=== PATIENT | male | born 1980 | race Caucasian/White ===

== ENCOUNTER 2017-10-24 08:31 | Emergency (ER) | payer OTHER ==
[~2017-10-24] VITALS: Ht 177.8 cm; Wt 68.2 kg
[2017-10-24 10:00] LABS: MEAN CORPUSCULAR HEMOGLOBIN 31.1 pg (27.0-33.0); MEAN CORPUSCULAR HGB CONC 34.4 g/dl (32.0-36.5); MEAN CORPUSCULAR VOLUME 90.4 fl (80.0-96.0); PLATELET COUNT, AUTOMATED 365 10^3/uL (150-450); RED CELL DISTRIBUTION WIDTH 12.7 % (11.5-14.5); WHITE BLOOD COUNT 12.6 10^3/uL (4.0-10.0)
[2017-10-24] MEDS ORDERED: NS 1,000 ML IV ONE (10:00)
[2017-10-24 10:23] LABS: ANION GAP 9 MEQ/L (8-16); BLOOD UREA NITROGEN 16 MG/DL (7-18); CALCIUM LEVEL 9.3 MG/DL (8.5-10.1); CARBON DIOXIDE LEVEL 29 MEQ/L (21-32); CHLORIDE LEVEL 99 MEQ/L (98-107); CREATININE FOR GFR 0.81 MG/DL (0.70-1.30); GLOMERULAR FILTRATION RATE > 60.0 (>60); GLUCOSE, FASTING 97 MG/DL (70-105); POTASSIUM SERUM 3.1 MEQ/L (3.5-5.1); SODIUM LEVEL 137 MEQ/L (136-145)
[2017-10-24] MEDS ORDERED: POTASSIUM CHLORIDE 10 MEQ SR TABLET PO ONE (11:00)
[2017-10-24 11:30] VITALS: BP 154/78
--- NOTE | 2017-10-25 08:37 | ECGEPIP ---
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
== END 2017-10-24 11:53 | disposition home or self-care (01) ==
LOC: M ED 08:31
DX: K21.0 Gastro-esophageal reflux disease with esophagitis (principal); I45.2 Bifascicular block; F17.200 Nicotine dependence, unspecified, uncomplicated; F12.10 Cannabis abuse, uncomplicated; Z82.49 Family history of ischemic heart disease and other diseases of the circulatory system; Z80.0 Family history of malignant neoplasm of digestive organs; Z88.0 Allergy status to penicillin

== ENCOUNTER → 2017-11-30 | Outpatient (REF) | payer OTHER ==
[2017-11-30 14:30] LABS: HEMATOCRIT 42.2 % (42.0-52.0); HEMOGLOBIN 13.8 g/dl (14.0-18.0); MEAN CORPUSCULAR HEMOGLOBIN 30.8 pg (27.0-33.0); MEAN CORPUSCULAR HGB CONC 32.7 g/dl (32.0-36.5); MEAN CORPUSCULAR VOLUME 94.2 fl (80.0-96.0); PLATELET COUNT, AUTOMATED 371 10^3/uL (150-450); RED BLOOD COUNT 4.48 10^6/uL (4.30-6.10); RED CELL DISTRIBUTION WIDTH 12.8 % (11.5-14.5); WHITE BLOOD COUNT 13.2 10^3/uL (4.0-10.0)
[2017-11-30 14:55] LABS: ALBUMIN 3.7 GM/DL (3.2-5.2); ALBUMIN/GLOBULIN RATIO 1.12 (1.00-1.93); ALKALINE PHOSPHATASE 64 U/L (45-117); ALT/SGPT 18 U/L (12-78); ANION GAP 8 MEQ/L (8-16); AST/SGOT 13 U/L (7-37); BILIRUBIN,TOTAL 0.3 MG/DL (0.2-1.0); BLOOD UREA NITROGEN 10 MG/DL (7-18); CALCIUM LEVEL 8.9 MG/DL (8.5-10.1); CARBON DIOXIDE LEVEL 28 MEQ/L (21-32); CHLORIDE LEVEL 104 MEQ/L (98-107); CHOLESTEROL LEVEL 193 MG/DL (<200); CHOLESTEROL RISK RATIO 4.288 (<5); CREATININE FOR GFR 0.84 MG/DL (0.70-1.30); GLOMERULAR FILTRATION RATE > 60.0 (>60); GLUCOSE, FASTING 87 MG/DL (70-100); HDL CHOLESTEROL 45 MG/DL (>40); LDL CHOLESTEROL 120.2 MG/DL (<100); NON-HDL-C 148 MG/DL; POTASSIUM SERUM 4.4 MEQ/L (3.5-5.1); SODIUM LEVEL 140 MEQ/L (136-145); TRIGLYCERIDES LEVEL 139 MG/DL (<150)
[2017-11-30 15:00] LABS: TESTOSTERONE 661 NG/DL (241-827)
== END ==
LOC: M LABDRAW1 10:19
DX: R10.9 Unspecified abdominal pain (principal)
CPT/HCPCS: 84403

== ENCOUNTER 2020-01-10 14:42 | Emergency (ER) | payer OTHER ==
[~2020-01-10] VITALS: Ht 177.8 cm; Wt 61.6 kg
[2020-01-10] MEDS ORDERED: [UNRECOGNIZED DRUG - OTHER] (14:50)
[2020-01-10] MEDS ORDERED: ONDANSETRON 4 MG ORAL DISINTEGRATING TAB (Q0162 PER 1MG) PO ONE (16:15)
[2020-01-10] MEDS ORDERED: PERCOCET 5MG/325MG TAB PO ONE (16:15)
--- NOTE | 2020-01-10 17:01 | REPVR ---
PROCEDURE INFORMATION: Exam: CT Lumbar Spine Without Contrast Exam date and time: 01/10/2020 4:17 PM Age: 39 years old Clinical indication: Back pain. TECHNIQUE: Imaging protocol: Computed tomography images of the lumbar spine without contrast. Radiation optimization: All CT scans at this facility use at least one of these dose optimization techniques: automated exposure control; mA and/or kV adjustment per patient size (includes targeted exams where dose is matched to clinical indication); or iterative reconstruction. COMPARISON: No relevant prior studies available. FINDINGS: Vertebrae: Lumbar lordosis is preserved. Vertebral body heights are maintained. No acute lumbar spine fracture. No measurable spondylolisthesis. Discs/Spinal canal/Neural foramina: Degenerative disc height loss with endplate sclerosis at L5-S1. Remaining disc space heights are preserved. Mild bilateral foraminal narrowing at L5-S1. Soft tissues: Unremarkable. IMPRESSION: 1. No acute findings in the lumbar spine. 2. Degenerative changes at L5-S1, as above. Electronically signed by: Jose Alberto Cruz On 01/10/2020 17:01:44 PM
--- NOTE | 2020-01-10 17:02 | REP ---
Duplex extremity venous ultrasound: Right lower extremity. History: Swelling. Rule out DVT. Findings: The deep veins are anechoic and fully compressible from the groin to the popliteal fossa in the right lower extremity. Color flow imaging is homogeneous. Spectral Doppler interrogation demonstrates intact respiratory variation in flow and normal manual augmentation of flow. There is no evidence of deep vein thrombosis. Impression: Negative right lower extremity duplex venous ultrasound. No evidence of deep vein thrombosis. Electronically Signed by Rafael Benítez MD 01/10/2020 04:54 P
[2020-01-10 17:14] LABS: INR 1.17; PROTHROMBIN TIME 14.6 SECONDS (11.8-14.0)
[2020-01-10] MEDS ORDERED: PERC5TAB12 PO (17:51)
--- NOTE | 2020-01-10 18:26 | REP ---
CT chest without contrast: History: Lung mass. Comparison is made with today's chest x-ray. Noncontrast chest CT findings: CT study confirms the presence of a large mass in the left lung apex. This measures 7.1 cm in greatest transverse dimension by 7.2 cm in greatest craniocaudal by 6.3 cm anterior to posterior. The lesion abuts the posterior aspect of the pleural space and the posterior ribs number 2 through 5. There is a tiny cortical defect or disruption of the posterior aspect of the left 3rd rib at the level of the mass. This may imply early chest wall invasion and rib destruction. No other skeletal changes are seen. There is bulky left hilar and mediastinal lymphadenopathy. Confluent adenopathy in the left AP window region measures 7.8 x 6.2 by 6.2 cm. There is hazy ground-glass opacity throughout much of the left lower lobe and to some degree in the right lower lobe. There are a few focally dilated bronchi or tiny cavitary nodules in the left upper lobe. There are emphysematous changes in the right apex. There is an intrarenal calculus in the upper pole of the left kidney 3 mm in diameter. No adrenal lesion is apparent. The visualized upper abdominal structures are otherwise unremarkable. Impression: Large left upper lobe apical lung mass which is pleural-based with equivocal erosive changes in the posterior left 3rd rib. There is bulky hilar and mediastinal lymphadenopathy on the left. Ground-glass opacity changes are seen in the lower lobes bilaterally. Multifocal dilated peripheral bronchi versus small cavitary nodules left upper lobe. Electronically Signed by Rafael Benítez MD 01/10/2020 08:13 P
[2020-01-10 18:40] VITALS: BP 151/80
--- NOTE | 2020-01-11 14:40 | ED PDOC ---
Post-Departure Follow-Up ct chest faxed to dr valladares for fu Alyssa Anand MD Jan 11, 2020 14:40
[2020-01-13] MEDS ORDERED: PERC5TAB12 PO (09:36)
== END 2020-01-10 18:42 | disposition home or self-care (01) ==
LOC: M ED 14:42
DX: R91.8 Other nonspecific abnormal finding of lung field (principal); M51.37 Other intervertebral disc degeneration, lumbosacral region; M48.07 Spinal stenosis, lumbosacral region; K21.9 Gastro-esophageal reflux disease without esophagitis; F17.210 Nicotine dependence, cigarettes, uncomplicated; Z88.0 Allergy status to penicillin; Z79.899 Other long term (current) drug therapy
CPT/HCPCS: 71250; 72131; 85610; 93971; 99283; Q0162

== ENCOUNTER → 2020-01-10 | Outpatient (CLI) | payer OTHER ==
[~2020-01-10] MED LIST: PERC5TAB12 PO; [UNRECOGNIZED DRUG - OTHER]
--- NOTE | 2020-01-10 10:04 | REP ---
Chest x-ray: Three views. History: Pain. Comparison chest x-ray: April 16 2009. Findings: There is a large lung mass in the left upper lobe measuring approximately 6 cm in greatest diameter. There is a thin enlargement left hilus and large with a left periaortic contour consistent with metastatic adenopathy. The findings are consistent with locally advanced bronchogenic malignancy. Chest CT study is recommended. The right lung is clear. Pleural angles are sharp. Heart is not enlarged. Impression: 6 cm mass in the left lung apex with left hilar and mediastinal lymphadenopathy. CT study of the chest preferably with IV contrast for further evaluation. Findings most consistent with bronchogenic malignancy. Electronically Signed by Rafael Benítez MD 01/10/2020 09:56 A
--- NOTE | 2020-01-10 10:05 | REP ---
Right shoulder series: Four views. History: Pain. Findings: Four views of the left shoulder demonstrate normal alignment of the glenohumeral and acromioclavicular joints. Periarticular soft tissues are unremarkable. There is a large mass in the apex of the left lung and there is left-sided mediastinal lymphadenopathy is seen on today's chest x-ray. Impression: Large left upper lobe/apical pleural-based lung mass. No rib destruction visible. Mediastinal adenopathy. No bony abnormality. Electronically Signed by Rafael Benítez MD 01/10/2020 09:57 A
[2020-01-10 13:11] LABS: BASO # 0.1 10^3/uL (0.0-0.2); BASO % 0.6 % (0.0-1.0); EOS # 0.2 10^3/uL (0.0-0.5); EOS % 1.4 % (0.0-3.0); HEMATOCRIT 26.6 % (42.0-52.0); HEMOGLOBIN 8.3 g/dl (13.5-17.5); LYMPH % 20.8 % (24.0-44.0); MEAN CORPUSCULAR HEMOGLOBIN 26.3 pg (27.0-33.0); MEAN CORPUSCULAR HGB CONC 31.2 g/dl (32.0-36.5); MEAN CORPUSCULAR VOLUME 84.4 fl (80.0-96.0); MONO # 0.8 10^3/uL (0.0-0.8); MONO % 5.8 % (0.0-5.0); NEUTROPHILS # 10.2 10^3/uL (1.5-8.5); NEUTROPHILS % 71.1 % (36.0-66.0); PLATELET COUNT, AUTOMATED 718 10^3/uL (150-450); RED BLOOD COUNT 3.15 10^6/uL (4.30-6.10); WHITE BLOOD COUNT 14.3 10^3/uL (4.0-10.0)
[2020-01-10 14:02] LABS: ALBUMIN 2.5 GM/DL (3.2-5.2); ALT/SGPT 15 U/L (12-78); AMYLASE 36 U/L (25-115); BILIRUBIN,TOTAL 0.8 MG/DL (0.2-1.0); BLOOD UREA NITROGEN 10 MG/DL (7-18); CALCIUM LEVEL 9.1 MG/DL (8.5-10.1); CARBON DIOXIDE LEVEL 28 MEQ/L (21-32); CHLORIDE LEVEL 101 MEQ/L (98-107); CREATININE FOR GFR 0.77 MG/DL (0.70-1.30); GLOMERULAR FILTRATION RATE > 60.0 (>60); GLUCOSE, FASTING 94 MG/DL (70-100); LIPASE 110 U/L (73-393); POTASSIUM SERUM 3.4 MEQ/L (3.5-5.1); SODIUM LEVEL 134 MEQ/L (136-145); TOTAL PROTEIN 6.9 GM/DL (6.4-8.2)
[2020-01-10 14:09] LABS: HEMOGLOBIN A1c 5.7 %
== END ==
LOC: M WUC 09:10
PROVIDERS: ATTEND Nurse Practitioner Family
DX: M25.512 Pain in left shoulder (principal); R63.4 Abnormal weight loss

== ENCOUNTER → 2020-01-14 | Outpatient (REF) | payer OTHER ==
[~2020-01-14] MED LIST changes: +CYCL10TA PO
[2020-01-14 13:35] LABS: INR 1.2; PROTHROMBIN TIME 14.9 SECONDS (11.8-14.0)
[2020-01-14 13:37] LABS: PARTIAL THROMBOPLASTIN TIME 38.3 SECONDS (25.0-38.4)
[2020-01-14 13:38] LABS: PLATELET COUNT, AUTOMATED 730 10^3/uL (150-450)
== END ==
LOC: M LAB REF 12:50
PROVIDERS: ATTEND Internal Medicine Pulmonary Disease
DX: R91.8 Other nonspecific abnormal finding of lung field (principal)

== ENCOUNTER → 2020-01-18 | Outpatient (CLI) | payer OTHER ==
[~2020-01-18] MED LIST changes: +LIDOCAINE 1% MDV 20ML VIAL As Ordered ONE
--- NOTE | 2020-01-18 14:38 | REP ---
Chest x-ray: Single view. History: Status post left lung biopsy. Comparison chest x-ray: January 10, 2020. Findings: The left hemidiaphragm remains somewhat elevated. There is a large mass at the apex of the left lung which was the biopsy target. There is bulky left mediastinal lymphadenopathy. These are unchanged. There is no evidence of pneumothorax or other complication. Electronically Signed by Rafael Benítez MD 01/18/2020 02:30 P
[2020-01-18 15:10] VITALS: BP 132/88
--- NOTE | 2020-01-18 16:08 | REP ---
CT-guided left upper lobe lung biopsy The procedure is performed by MARIA ALEJANDRA Galdamez, under the direct supervision of Dr. Benítez. The risks and benefits of the procedure were explained to the patient and informed consent was obtained both orally and written. Directly prior to the start of the procedure, a formal timeout was done in the exam room. The left upper lobe lung mass was localized using CT guidance. Skin was prepped and draped in the usual sterile fashion. 3 ml of 1% lidocaine 10 mg/ml was used as a local anesthetic. Using CT guidance a 19/20 gauge coaxial needle biopsy system was inserted and advanced into the mass. 6 core biopsy samples were obtained and sent to the lab. CT images obtained directly after the biopsy show no evidence of pneumothorax. After the appropriate amount of monitored convalescence the patient was discharged from the department. Reviewed by MARIA ALEJANDRA Marcos 01/18/2020 03:02 P Electronically Signed by Rafael Benítez MD 01/18/2020 03:59 P
== END ==
LOC: M IRPRO 11:15
PROVIDERS: ATTEND Internal Medicine Pulmonary Disease
DX: C34.12 Malignant neoplasm of upper lobe, left bronchus or lung (principal); F17.218 Nicotine dependence, cigarettes, with other nicotine-induced disorders; Z80.1 Family history of malignant neoplasm of trachea, bronchus and lung; R91.8 Other nonspecific abnormal finding of lung field

== ENCOUNTER → 2020-01-28 | Outpatient (CLI) | payer OTHER ==
[~2020-01-28] MED LIST changes: +ACET-683 PO; -LIDOCAINE 1% MDV 20ML VIAL As Ordered ONE
--- NOTE | 2020-01-28 08:43 | PFTRPT ---
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 Pt was given four puffs of albuterol for postbronchodilator. Review Status: Not Reviewed Pre-Bronch Post-Bronch Pred Actual %Pred Actual %Chng SPIROMETRY FVC (L) 4.93 2.99 60 3.74 24 FEV1 (L) 3.92 1.91 48 2.74 43 FEV1/FVC (%) 79 64 80 73 15 FEF 25% (L/sec) 6.90 2.29 33 4.45 94 FEF 50% (L/sec) 4.52 1.64 36 3.33 103 FEF 75% (L/sec) 1.63 0.63 38 2.00 216 FEF 25-75% (L/sec) 3.71 1.33 35 3.12 134 FEF Max (L/sec) 9.69 2.71 28 4.50 65 FIVC (L) 2.91 3.69 26 FIF 50% (L/sec) 5.20 1.93 37 3.35 73 FIF Max (L/sec) 2.12 3.39 59 MVV (L/min) 157 57 36 Expiratory Time (sec) 7.80 7.62 -2 Back Extrap Vol (L) 0.06 0.11 84 Time To FEFmax (sec) 0.126 0.145 15 LUNG VOLUMES SVC (L) 4.78 3.58 74 IC (L) 3.29 2.65 80 ERV (L) 1.49 0.93 62 TGV (L) 3.24 3.90 120 RV (Pleth) (L) 1.75 2.97 169 TLC (Pleth) (L) 6.53 6.55 100 RV/TLC (Pleth) (%) 27 45 167 DIFFUSION DLCOunc (ml/min/mmHg) 31.80 15.43 48 DLCOcor (ml/min/mmHg) 31.80 17.75 55 DL/VA (ml/min/mmHg/L) 4.87 2.84 58 VA (L) 6.53 6.26 95 BHT (sec) 10.39 IVC (L) 3.52 TLC (SB) (L) 6.41 AIRWAYS RESISTANCE Raw (cmH2O/L/s) 1.45 2.09 143 Gaw (L/s/cmH2O) 1.03 0.49 48 sRaw (cmH2O*s) 4.76 7.85 164 sGaw (1/cmH2O*s) 0.20 0.13 65 BLOOD GASES Hgb (gm/dL) 10.7
== END ==
LOC: M CARPUL 07:34
PROVIDERS: ATTEND Internal Medicine Pulmonary Disease
DX: C34.82 Malignant neoplasm of overlapping sites of left bronchus and lung (principal)

== ENCOUNTER → 2020-01-28 | Outpatient (CLI) | payer OTHER ==
[~2020-01-28] MED LIST changes: +ISOVUE-370 76% 100ML VIAL (Q9967) As Ordered ONE
--- NOTE | 2020-01-28 09:04 | REP ---
Clinical: Non-small cell lung cancer. Staging. Technique: Axial contrast enhanced images from the thoracic inlet to the upper abdomen with coronal and sagittal re-formations. Comparison: 01/10/2020. Findings: 7.8 x 5.5 x 7.0 cm posterior left apical mass along with conglomerate adenopathy/mass arising from the left perihilar/suprahilar lung zone with extension into the mediastinum and near complete extrinsic compression of the left main pulmonary artery measures greater than 7.6 x 9.3 x 10.7 cm. Further left mediastinal and hilar adenopathy measuring up to 3.9 cm diameter. Underlying moderate emphysematous disease with minimal scattered bilateral scarring. Right hemithorax appears relatively clear although a small irregular area of opacity at the deep medial right posterior sulcus (images 101 - 109) is identified and small area of right upper lobe scarring (images 20 - 28) noted. No significant pleural effusion. No pneumothorax. Thoracic aorta appears normal. No pericardial effusion. No cardiomegaly. The osseous structures appear intact. Impression: 1. Large left sided mass lesions and adenopathy as described above. 2. Underlying chronic emphysematous changes and subtle right-sided changes as noted above are nonspecific. Electronically Signed by Maurilio Coleman MD 01/28/2020 08:55 A
== END ==
LOC: M RAD 07:33
PROVIDERS: ATTEND Internal Medicine Hematology & Oncology
DX: C34.92 Malignant neoplasm of unspecified part of left bronchus or lung (principal)
CPT/HCPCS: 71260; Q9967

== ENCOUNTER → 2020-01-30 | Outpatient (CLI) | payer OTHER ==
[~2020-01-30] MED LIST changes: -ISOVUE-370 76% 100ML VIAL (Q9967) As Ordered ONE; +LIDOCAINE 1% MDV 20ML VIAL As Ordered ONE
[2020-01-30 08:09] VITALS: BP 129/79
== END ==
LOC: M IRPRO 07:58
PROVIDERS: ATTEND Internal Medicine Hematology & Oncology
DX: K13.29 Other disturbances of oral epithelium, including tongue (principal); R43.9 Unspecified disturbances of smell and taste; R05 Cough; R07.0 Pain in throat; R50.9 Fever, unspecified; C34.90 Malignant neoplasm of unspecified part of unspecified bronchus or lung; Z53.09 Procedure and treatment not carried out because of other contraindication

== ENCOUNTER → 2020-02-04 | Outpatient (CLI) | payer OTHER ==
[~2020-02-04] MED LIST changes: -LIDOCAINE 1% MDV 20ML VIAL As Ordered ONE; +OXYC1TAB23 PO
--- NOTE | 2020-02-04 19:37 | REP ---
PET/CT: History: Staging lung cancer. Comparisons: Comparison CT study of the chest is from January 28, 2020. TECHNIQUE: 47 minutes following the intravenous injection of a 8.23 mCi dose of F-18 FDG, three-dimensional PET scintigraphy is acquired from the skull base to the proximal thighs. Triplanar noncontrast CT scanning is acquired through the same anatomic range for attenuation correction, and image registration with scan parameters optimized to minimize radiation exposure to the patient. PET scintigraphy and CT datasets were fused and displayed on a workstation with multiplanar and projection display capability. PET/CT Findings: The known large left lung apical soft tissue mass is markedly hypermetabolic. Maximum standard uptake value within this mass is 24.35. There is evidence of posterior chest wall involvement and erosive changes are seen in the left posterior 4th rib. The mediastinal mass seen is also hypermetabolic. Maximum standard uptake value within this is 20.16. Hypermetabolic left hilar adenopathy is seen with maximum standard uptake value 17.74. No other pulmonary parenchymal hypermetabolic uptake is appreciated. In the abdomen and pelvis, there is normal FDG distribution. No abnormal adrenal uptake is seen. No abnormal hypermetabolic uptake is seen in the abdomen or pelvis. Impression: Markedly hypermetabolic uptake is seen in the large mass in the left apex and in the bulky mediastinal and left hilar adenopathy. There is left apical posterior chest wall involvement with erosive changes in the 4th posterior rib on the left. Electronically Signed by Rafael Benítez MD 02/04/2020 07:39 P
== END ==
LOC: M PLARAD 09:17
PROVIDERS: ATTEND Internal Medicine Pulmonary Disease
DX: C34.82 Malignant neoplasm of overlapping sites of left bronchus and lung (principal)
CPT/HCPCS: 78815; A9552

== ENCOUNTER → 2020-02-05 | Outpatient (CLI) | payer OTHER ==
[~2020-02-05] MED LIST changes: +PROHANCE 279.3MG/ML 15ML VIAL (A9576) As Ordered ONE
--- NOTE | 2020-02-05 17:48 | REP ---
MRI brain without and with IV gadolinium: History: Lung carcinoma. No comparison brain imaging. Technique: Axial and sagittal imaging planes are utilized for T1 and T2-weighted scans. Sequences include spin-echo, fast spin echo, FLAIR, and diffusion weighted sequences. Gadolinium enhancement dose is 11 mL of intravenous ProHance. MRI findings: No bony calvarial lesion is appreciated. Craniocervical junction and upper cervical cord are normal in appearance. No intraorbital abnormality is seen. There is no MR evidence of significant paranasal sinus disease. There is mild motion artifact on the T2-weighted sequences. Diffusion weighted scan show no evidence to suggest acute ischemia or other cause of restricted diffusion. There is no evidence of intracranial mass lesion. No extra-axial fluid collection is seen. Postcontrast imaging shows enhancement in normal vasculature. No abnormal contrast enhancement is appreciated. Impression: There is no evidence of intracranial metastasis or other acute intracranial abnormality. Electronically Signed by Rafael Benítez MD 02/06/2020 08:48 A
== END ==
LOC: M RAD 15:20
PROVIDERS: ATTEND Internal Medicine Hematology & Oncology
DX: C34.90 Malignant neoplasm of unspecified part of unspecified bronchus or lung (principal)
CPT/HCPCS: 70553; A9576

== ENCOUNTER → 2020-02-06 | Outpatient (CLI) | payer OTHER ==
[~2020-02-06] MED LIST changes: +LIDOCAINE 1% MDV 20ML VIAL As Ordered ONE; +MORP30TASA PO; +OXYC10TA12 PO; +OXYC1CAP PO; -PROHANCE 279.3MG/ML 15ML VIAL (A9576) As Ordered ONE
--- NOTE | 2020-02-06 10:05 | REP ---
CHEST, SINGLE VIEW: Single view of the chest is performed status post left lung biopsy. There is no pneumothorax. Left upper lobe mass is again seen. Left hilar mass is again seen. Right lung is clear. Heart is normal in size. IMPRESSION: No pneumothorax status post left lung biopsy. Electronically Signed by Chuck Sandoval MD 02/06/2020 10:33 A
[2020-02-06 11:30] VITALS: BP 120/80
--- NOTE | 2020-02-06 11:58 | REP ---
CHEST, SINGLE VIEW: Single view of the chest is performed status post left lung biopsy. There is no pneumothorax. Left apical and hilar masses are unchanged. Right lung remains clear. IMPRESSION: No pneumothorax status post left lung biopsy. Electronically Signed by Chuck Sandoval MD 02/06/2020 12:14 P
--- NOTE | 2020-02-06 13:39 | REP ---
CT-guided left upper lobe lung biopsy The procedure is performed by MARIA ALEJANDRA Galdamez, under the direct supervision of Dr. Sandoval. The risks and benefits of the procedure were explained to the patient and informed consent was obtained both orally and written. Directly prior to the start of the procedure, a formal timeout was done in the exam room. The left upper lobe lung mass was localized using CT guidance. Skin was prepped and draped in the usual sterile fashion. 4 ml of 1% lidocaine 10 mg/ml was used as a local anesthetic. Using CT guidance a 19/20 gauge coaxial needle biopsy system was inserted and advanced into the nodule. 6 core biopsy samples were obtained and sent to the lab. CT images obtained directly after the biopsy show no evidence of pneumothorax. After the appropriate amount of monitored convalescence the patient was discharged from the department. Reviewed by MARIA ALEJANDRA Marcos 02/06/2020 12:17 P Electronically Signed by Chuck Sandoval MD 02/06/2020 01:31 P
== END ==
LOC: M IRPRO 08:20
PROVIDERS: ATTEND Internal Medicine Hematology & Oncology
DX: C34.92 Malignant neoplasm of unspecified part of left bronchus or lung (principal); Z88.0 Allergy status to penicillin

== ENCOUNTER → 2020-02-15 | Outpatient (CLI) | payer OTHER ==
[~2020-02-15] MED LIST changes: +CYCL-707 PO; -CYCL10TA PO; +MIDAZOLAM INJ 2 MG/2 ML VIAL (J2250) As Ordered ONE; +VANCOMYCIN HCL 500 MG/10 ML VIAL (J3370) As Ordered ONE; +diphenhydrAMINE 50MG/ML VIAL (J1200) As Ordered ONE; +fentaNYL 100 MCG/2 ML INJECTION (J3010) As Ordered ONE
--- NOTE | 2020-02-15 08:58 | IRHP ---
[facility] IR Pre-Procedure H & P General Date of Service: Feb 15, 2020 Procedure: Same Day Surgery Interval History and Physical I have seen the patient and reviewed last H & P performed within 30 days. There is no significant interval change. History of Present Illness Chief Complaint The patient is a 39-year-old male admitted with a reason for visit of [facility], Chemo. PRE-PROCEDURE DIAGNOSIS: lung ca HEART: normal rate. LUNGS: normal breathing at rest. ASA Classification ASA Classification: II-Mild systemic disease Mallampati Score: II NPO: Yes Problems with prior sedation: No Obstructive Sleep Apnea: No Plan moderate sedation Allergies Coded Allergies: Penicillins (Verified Allergy, Unknown, 01/10/20) Home Medications Scheduled Morphine Sulfate (Morphine Sulfate ER), 30 MG PO TID Morphine Sulfate (Morphine Sulfate ER), 30 MG PO TID Scheduled PRN Cyclobenzaprine HCl (Cyclobenzaprine HCl), 10 MG PO TID PRN for MUSCLE SPASMS, (Reported) Oxycodone HCl (Oxycodone HCl), 1 TAB PO 6XD PRN for Cancer related pain G89.3 Oxycodone HCl (Oxycodone HCl), 10 MG PO Q4HP PRN for Cancer Related pain G89.3 Oxycodone HCl/Acetaminophen (Oxycodone-Acetaminophen 5-325), 2 TAB PO Q6H PRN for PAIN, (Reported) VS, I&O, 24H, Fishbone Vital Signs/I&O Vital Signs Date Time Temp Pulse Resp B/P (MAP) Pulse Ox O2 Delivery O2 Flow Rate FiO2 02/15/20 08:15 99.2 108 16 100 Room Air ADIS DEAL MD Feb 15, 2020 08:58
--- NOTE | 2020-02-15 09:35 | POST-OPPD ---
Postoperative Procedure Note Date Of Procedure: Feb 15, 2020 Time Of Procedure: 09:33 PREOPERATIVE DIAGNOSIS: lung ca POSTOPERATIVE DIAGNOSIS: same FINDINGS: patent right IJ PROCEDURE: right side port placement SURGEON: Carlo ANESTHESIA: mod sed ESTIMATED BLOOD LOSS: < 5 ml COMPLICATIONS: none POSTOPERATIVE CONDITION: stable ADIS DEAL MD Feb 15, 2020 09:34
--- NOTE | 2020-02-15 10:01 | REP ---
IR Ultrasound and fluoroscopy-guided port placement. IR Ultrasound of the neck. IR Moderate sedation. Clinical information: Lung cancer. Physician: Dr. Matos. Procedure: The patient was advised of the benefits, risks, and alternatives of the procedure and informed consent was obtained. A time-out was performed with verification of the patient's name, MRN, site of procedure and type of procedure to be performed. The patient was positioned in the supine position on the angiographic table. The site was prepped and draped in the usual sterile fashion. Moderate sedation was performed by the physician including the presence of an independent trained observer who assisted and monitored the patient's level of consciousness and physiologic status. Following the administration of Fentanyl and Versed, the physician spent 45 minutes of continuous face to face time with the patient. Ultrasound of the neck reveals a patent and compressible right internal jugular vein. A loan associate radiograph reveals lung opacifictaions. The neck and anterior chest wall were anesthetized with lidocaine. The right internal jugular vein was accessed using a microintroducer needle under ultrasound guidance, via a lateral approach. An 018 wire was advanced into the superior vena cava, the needle was removed and a microsheath was placed. An Amplatz wire was then passed into the inferior vena cava. An incision at the internal jugular vein access site and anterior chest wall were made using a scalpel. An incision was made at the anterior chest wall. A small pocket was created using a combination of blunt and sharp dissection. A tunneling device was then used to pass the catheter from the pocket to the neck puncture site. An 8-[employer] smart power port was then positioned in the pocket. The catheter was then measured and cut. The introducer sheath was exchanged for a peel-away sheath. The catheter was passed through the peel-away sheath into the internal jugular vein and the peel-away sheath was removed. The port tip was positioned at the cavoatrial junction. The port was then accessed with a Jorge needle. The port flushes and aspirates well. The puncture site in the neck was closed. The chest wall incision was then closed with 2-0 Vicryl and 4-0 Monocryl. Glue and Steri-Strips were applied. A sterile dressing was then applied. The patient tolerated the procedure well and was returned to the PRU in stable condition. Estimated blood loss: <5 ml. Complications: None. Conclusion: 1. Successful placement of an 8-[employer] smart power port via the right internal jugular vein. The port is ready for immediate use. 2. Patient to follow up in IR clinic in 2 weeks. Thank you for this referral. Electronically Signed by Clara Matos MD 02/15/2020 09:59 A
[2020-02-15 11:39] VITALS: BP 127/88
== END ==
LOC: M IRPRO 08:07
PROVIDERS: ATTEND Radiology Diagnostic Radiology
DX: C34.90 Malignant neoplasm of unspecified part of unspecified bronchus or lung (principal); Z88.0 Allergy status to penicillin
CPT/HCPCS: 36561; 99152; 99153; J1200; J1642; J1644; J2250; J3010; J3370

== ENCOUNTER → 2020-02-19 | Outpatient (CLI) | payer OTHER ==
[~2020-02-19] MED LIST changes: -LIDOCAINE 1% MDV 20ML VIAL As Ordered ONE; -MIDAZOLAM INJ 2 MG/2 ML VIAL (J2250) As Ordered ONE; -VANCOMYCIN HCL 500 MG/10 ML VIAL (J3370) As Ordered ONE; -diphenhydrAMINE 50MG/ML VIAL (J1200) As Ordered ONE; -fentaNYL 100 MCG/2 ML INJECTION (J3010) As Ordered ONE
--- NOTE | 2020-02-19 16:25 | RADONC ---
RADIATION ONCOLOGY CONSULTATION NOTE DATE: 02/19/2020 This is a telemedicine visit. The patient was informed of the risks including security breech, technological failure, inability to perform a comprehensive physical exam which could delay or prevent an accurate diagnosis, and potential complications from treatment decisions rendered over a telemedicine platform. The patient understands and consented to the use of telehealth services phone only. CHART NUMBER: [id number] DIAGNOSIS: Left upper lung cancer. STAGE: III B, T4, N2, M0. ECOG PERFORMANCE STATUS: Unknown. CONSULTATION NOTE: Mr. Dotson is a 39-year-old white male with the diagnosis of what appears to be a significantly locally advanced stage III B, T4N2M0 non-small cell lung carcinoma of the left upper lobe and mediastinum eating into the left chest wall, who is presenting to us today for consideration of definitive external beam radiation therapy combined with chemotherapy as a therapeutic option. HISTORY OF PRESENT ILLNESS: The patient states that he was in his usual state of health with a very long and significant smoking history. In September of last year, he began developing pain in his left upper and lower back as well as is left shoulder and rib cage. He was seen by his primary care physician and a CT scan was done on 01/10/2020, which revealed a large left upper lobe apical lung mass, which was pleural based with erosive changes especially in the posterior left third rib area. There was bulky hilar and mediastinal lymphadenopathy on the left as well and there were ground-glass changes seen in the lower lobes bilaterally. There were multifocal dilated peripheral bronchi versus small cavitary nodules in the left upper lobe. On 01/18/2020, the patient underwent biopsy of his left upper lobe and pathology revealed a non-small cell carcinoma. The patient has significant pain at this time. The CT scan revealed a 7.1 cm x 7.2 cm x 6.3 cm mass. A PET scan was done on 02/04/2020 and showed a very large left apical soft tissue mass , which was markedly hypermetabolic with an SUV value of 24.35. The mass appeared to be eroding into the posterior chest wall with changes through the left posterior 4th rib. There was also a large mediastinal mass, which was also hypermetabolic with an SUV value of 20.16. There was hypermetabolic left hilar adenopathy with an SUV value of 7.74. Pulmonary function tests were undertaken on 01/28/2020 and revealed an FEV-1 of 1.91 with a diffusion capacity of 48%. The patient was seen by her medical oncologist doctor, Bakari Hendricks MD, who has given the patient pain medication and referred him to me for consideration of combination chemotherapy and radiation as a therapeutic option. PAST MEDICAL HISTORY: The patient's past medical history is positive for an abdominal hernia repair. It is otherwise noncontributory. SOCIAL HISTORY: The patient had smoked one pack of cigarettes per day for 28 years. He also smokes three marijuana cigarettes daily for 28 years or so. He does not abuse alcohol. FAMILY HISTORY: The patient's family history is positive for a father with colon cancer, a mother with lung cancer, and a paternal aunt with breast cancer. ALLERGIES: The patient is allergic to PENICILLIN. REVIEW OF SYSTEMS: The patient's review of systems is positive for a 25 pound weight loss in the last month as well as shoulder, rib, and left chest wall and back pain. It is otherwise noncontributory. Denies nausea, vomiting, fevers, chills, night sweats, diplopia, headaches, anxiety or depression, anorexia, visual disturbances, urinary or bowel difficulties, bone pain, or neurological problems. PHYSICAL EXAMINATION: This was a telephone consultation. Physical examination clearly was not done at this time secondary to COVID-19 precautions. ASSESSMENT: I had a lengthy discussion with this patient with regards to treatment. At this point, he does appear to be a candidate for external beam radiation therapy. We discussed logistics of treatment planning simulation and subsequent fractionated daily radiation treatments. I discussed the risks of radiation and the advanced nature of his disease. Our likelihood of achieving a long-term cure of this is a very small if nonexistent. We will attempt however to obtain some type of local control and hopefully palliation of his discomfort. The patient does wish to undergo treatment and therefore, I am scheduling him for the next available simulation slot and radiation treatments will begin subsequently. We will coordinate his care with medical oncology as well. Thank you for allowing us to participate in the care of this very pleasant gentleman. If I could be of any further assistance, please free to contact me anytime. cc: MD Matty Caraballo MD Frederick Tontarski, PA
== END ==
LOC: M ONCR 14:20
PROVIDERS: ATTEND Radiology Radiation Oncology
DX: C34.12 Malignant neoplasm of upper lobe, left bronchus or lung (principal)

== ENCOUNTER → 2020-02-25 | Outpatient (CLI) | payer OTHER ==
[~2020-02-25] MED LIST changes: +FOLI1TAB11 PO; +PROC5TA PO; +XARE10TA PO; +[UNRECOGNIZED DRUG - OTHER]
--- NOTE | 2020-02-25 14:26 | REP ---
DIFFERENTIAL LUNG VENTILATION AND PERFUSION SCAN: Following the intravenous administration of 1.1 millicuries technetium 99m tagged MAA and the inhalation of 2.0 millicuries technetium 99m DTPA aerosol, images of the lungs are obtained in the anterior and posterior projections. Differential counts are obtained in the upper, middle, and lower thirds of both lungs. There is essentially no ventilation or perfusion of the upper third of the left lung. There is very mild perfusion and ventilation in the mid and lower thirds of the left lung. The mean perfusion of the left lung is 10.2% and of the right lung is 89.8%. The mean ventilation of the left lung is 11.1% and right lung 88.9%. Electronically Signed by Chuck Sandoval MD 02/25/2020 03:21 P
--- NOTE | 2020-02-26 02:37 | REP ---
Clinical: Lung cancer. Technique: PA and lateral. Findings: [id number] with tip in the SVC. Left hilar/suprahilar mass and left upper lobe lung mass are similar to prior examination. No obvious new acute process. No effusion. No pneumothorax. Skeletal structures are intact. Cardiac silhouette is normal. Impression: Left hilar mass / adenopathy and left upper lobe mass essentially unchanged. No new acute process identified by radiographic evaluation. Electronically Signed by Maurilio Coleman MD 02/26/2020 02:28 A
== END ==
LOC: M RAD 12:29
PROVIDERS: ATTEND Radiology Radiation Oncology
DX: C34.12 Malignant neoplasm of upper lobe, left bronchus or lung (principal)
CPT/HCPCS: 71046; 78598; A9540; A9567

== ENCOUNTER 2020-03-03 15:53 | Inpatient (IN) | payer OTHER ==
[~2020-03-03] VITALS: Ht 172.7 cm; Wt 58.9 kg
[2020-03-03] MEDS ORDERED: DOXY100C37 PO (16:19)
[2020-03-03 16:50] LABS: HEMATOCRIT 28.2 % (42.0-52.0); HEMOGLOBIN 8.9 g/dl (13.5-17.5); MEAN CORPUSCULAR HEMOGLOBIN 24.3 pg (27.0-33.0); MEAN CORPUSCULAR HGB CONC 31.6 g/dl (32.0-36.5); PLATELET COUNT, AUTOMATED 448 10^3/uL (150-450); RED BLOOD COUNT 3.66 10^6/uL (4.30-6.10); WHITE BLOOD COUNT 25.2 10^3/uL (4.0-10.0)
[2020-03-03] MEDS ORDERED: MORPHINE 30 MG SA TAB PO ONE (17:00)
[2020-03-03 17:19] LABS: BASO % 0.2 % (0.0-1.0); LYMPH # 2.6 10^3/uL (1.5-5.0); LYMPH % 10.9 % (24.0-44.0); MONO # 1.1 10^3/uL (0.0-0.8); MONO % 4.7 % (0.0-5.0); NEUTROPHILS # 19.9 10^3/uL (1.5-8.5); NEUTROPHILS % 83.4 % (36.0-66.0)
[2020-03-03 17:20] LABS: ALBUMIN 1.9 GM/DL (3.2-5.2); ALT/SGPT 34 U/L (12-78); BILIRUBIN,DIRECT < 0.1 MG/DL (0.0-0.2); BILIRUBIN,TOTAL 0.4 MG/DL (0.2-1.0); BLOOD UREA NITROGEN 15 MG/DL (7-18); CALCIUM LEVEL 8.6 MG/DL (8.5-10.1); CARBON DIOXIDE LEVEL 27 MEQ/L (21-32); CHLORIDE LEVEL 99 MEQ/L (98-107); CK-MB VALUE MASS 3.6 NG/ML (<3.6); CPK CREATINE PHOSPHOKINASE 77 U/L (39-308); GLOMERULAR FILTRATION RATE > 60.0 (>60); GLUCOSE, FASTING 88 MG/DL (70-100); MB/CK RELATIVE INDEX 4.68 (< OR =4); NT-PRO BNP 2103 PG/ML (<125); POTASSIUM SERUM 4.3 MEQ/L (3.5-5.1); SODIUM LEVEL 134 MEQ/L (136-145); TOTAL PROTEIN 6.8 GM/DL (6.4-8.2); TROPONIN I < 0.02 NG/ML (< 0.10)
[2020-03-03] MEDS ORDERED: cefTRIAXone SOD 2 GM in D5W MINI-BAG PLUS 50 ML IV ONE (17:30)
[2020-03-03] MEDS ORDERED: MORP30TASA PO (17:31)
[2020-03-03] MEDS ORDERED: FOLI1TAB11 PO (17:31)
[2020-03-03] MEDS ORDERED: PROC5TA PO (17:31)
[2020-03-03] MEDS ORDERED: OXYC10TA12 PO (17:31)
[2020-03-03] MEDS ORDERED: XARE10TA PO (17:33)
[2020-03-03] MEDS ORDERED: VENTAER PO (17:35)
[2020-03-03] MEDS ORDERED: SYMB16INH INH (17:35)
[2020-03-03] MEDS ORDERED: oxyCODONE 5MG TAB PO ONE (17:45)
[2020-03-03] MEDS ORDERED: PROCHLORPERAZINE 5 MG TAB (S0183) PO PRN (18:15)
[2020-03-03] MEDS ORDERED: ALBUTEROL 90 MCG/ACT 8GM HFA INHALER INH PRN (18:15)
[2020-03-03] MEDS ORDERED: MOM 30ML SUSPENSION UDC PO PRN (18:15)
[2020-03-03] MEDS ORDERED: VANCOMYCIN HCL 1,000 MG, VIAL MATE ADAPTER 1 EACH in D5W 250 ML IV ONE (19:15)
[2020-03-03] MEDS: RIVAROXABAN 10 MG TAB (XARELTO) PO SCH (19:33)
[2020-03-03 19:41] LABS: INR 1.19; PROTHROMBIN TIME 14.8 SECONDS (11.8-14.0)
[2020-03-03 19:42] LABS: PARTIAL THROMBOPLASTIN TIME 35.9 SECONDS (25.0-38.4)
--- NOTE | 2020-03-03 19:52 | HPEPDOC ---
General Date of Admission Mar 03, 2020 at 18:10 Date of Service: Mar 03, 2020 Attending Physician: BRENDA AGUIRRE MD Chief Complaint The patient is a 39-year-old male admitted with a reason for visit of Cellulitis,Leukocytosis. Source: Patient Exam Limitations: No limitations Timing/Duration: Getting worse Associated Symptoms: Other (bilateral leg swelling) History of Present Illness 39 yo man smoker, with recently diagnosed VICTORINA lung cancer pending starting chemo/XRT who presented to the ED per recommendation of his oncologist for worsening LE edema now with bilateral erythematous, hot low extremities from the ankles to subknee region with shallow open skin lesions from popped bullae, with associated pain. He reports this to have started 1 week ago and has gradually worsened with development of LE pain as well. He otherwise denies fever, chills, N/V/chest pain/palpitations/syncope/abdominal more than his usual baseline pain. In the EDWBC was 25.2, hgb 8.9, platelets 448, na 134, Cr 0.5, LFTs showed protein of 6.8 with albumin of 1.9 and proBNP of 2103. EKG was non ischemic with an incomplete RBBB and troponin was negative. He had bilateral venous doppler US that was negative for DVT and CXR with previously noted VICTORINA mass and small L pleural effusion. He was given a dose of ceftriaxone and is being admitted to medicine. Home Medications Scheduled Budesonide/Formoterol (Symbicort 160-4.5 Mcg Inhaler) 6 Gm Hfa.aer.ad, 2 PUFF INH BID, (Reported) Doxycycline Monohydrate (Doxycycline Monohydrate) 100 Mg Capsule, 100 MG PO BID, (Reported) Folic Acid (Folic Acid) 1 Mg Tablet, 1 MG PO DAILY, (Reported) Morphine Sulfate (Morphine Sulfate ER) 30 Mg Tablet.er, 30 MG PO TID, (Reported) MDD 3 TABS Rivaroxaban (Xarelto) 10 Mg Tablet, 10 MG PO DAILY, (Reported) Scheduled PRN Albuterol Sulfate (Ventolin Hfa) 18 Gm Hfa.aer.ad, 2 PUFFS PO QID PRN for SHORTNESS OF BREATH, (Reported) Oxycodone HCl (Oxycodone HCl) 10 Mg Tablet, 10 MG PO Q4HP PRN for PAIN, (Reported) CANCER RELATED PAIN MDD 6 TABS Prochlorperazine (Prochlorperazine Maleate) 5 Mg Tablet, 5 MG PO TID PRN for NAUSEA, (Reported) FOR USE WHEN ON CHEMOTHERAPY Allergies Coded Allergies: Penicillins (Verified Allergy, Unknown, 01/10/20) Past Medical History Medical History Recent diagnosis of VICTORINA lung cancer Smoking Family History Significant Family History: No pertinent family hx Social History * Smoker: current smoker Recent Travel/Sick Contacts: Denies: Recent travel, Recent sick contacts Psychosocial History: No pertinent psych hx A-FIB/CHADSVASC A-FIB History Current/History of A-Fib/PAF?: No Current PO Anticoag Therapy: Yes Age/Risk Factor Scoring CHADSVASC: CHADSVASC Response (Comments) Value Age Risk Factor Age < 65 years old 0 Gender Risk Factor Male 0 Hx of CHF No 0 Hx of HTN No 0 Hx of Stroke/TIA/or VTE No 0 Hx of Diabetes No 0 Hx of Vascular Disease No 0 Total 0 Treatment Reason Anticoagulant not given: Not indicated/[id number] Review of Systems Constitutional: Denies: Chills, Fever, Night Sweats Eyes: Denies: Pain, Vision change ENT: Denies: Head Aches, Ear Pain, Dysphagia Skin: Denies: Rash, Lesions, Breakdown Pulmonary: Denies: Dyspnea, Cough Cardiovascular: Denies: Chest Pain, Palpitations, Orthopnea, Paroxysmal Noc. Dyspnea, Lt Headedness Gastrointestinal: Denies: Nausea, Vomiting, Abdominal Pain, Diarrhea Genitourinary: Denies: Dysuria, Frequency, Incontinence, Retention Hematologic: Denies: Bruising, Bleeding Excessively Endocrine: Denies: Polydipsia, Polyphagia, Polyuria, Heat Intolerance, Cold Intolerance, Other Endocrine Sx Musculoskeletal: Reports: Back Pain (chronic cancer pain ) Neurological: Denies: Weakness, Numbness, Change in speech, Confusion Psych: Reports: Mood Normal; Denies: Depression, Memory Issues Physical Examination General Exam: Positive: Alert, No Acute Distress Eye Exam: Positive: PERRLA, Conjunctiva & lids normal, EOMI, Other Eye Symptoms (has bilateral punctate hemorrhages (no trauma history)); Negative: Sclera icteric ENT Exam: Positive: Atraumatic, Mucous membr. moist/pink, Pharynx Normal, Other ENT (R ear with dry blood (reports a bleeding pimple)) Neck Exam: Positive: Supple; Negative: JVD, thyromegaly Chest Exam: Positive: Normal air movement, Diminished (Left lower, posterior); Negative: Rales, Rhonchi, Wheezing Heart Exam: Positive: Tachycardic, Regular Rhythm Telemetry: Positive: Sinus, Tachycardia Abdomen Exam: Positive: Normal bowel sounds, Soft; Negative: Tenderness, Hepatospenomegaly Extremity Exam: Positive: Edema (anasarca bilateral LE) Skin Exam: Positive: Lesion (open bullae with multiple open lesions), Other skin issue (erythema, hot ankle to sub-knee region bilaterally, with now marked borders) Neuro Exam: Positive: Normal Speech, Strength at 5/5 X4 ext, Cranial Nerves 3- 12 NL Psych Exam: Positive: Mental status NL, Mood NL, Oriented x 3 Vital Signs Vital Signs Date Time Temp Pulse Resp B/P (MAP) Pulse Ox O2 Delivery O2 Flow Rate FiO2 03/03/20 17:49 20 03/03/20 17:15 110 134/87 (103) 99 Room Air 03/03/20 16:04 99.4 Laboratory Data Labs 24H Laboratory Tests 2 03/03/20 16:28: Immature Granulocyte % (Auto) 0.8, Neutrophils (%) (Auto) 83.4H, Lymphocytes (%) (Auto) 10.9L, Monocytes (%) (Auto) 4.7, Eosinophils (%) (Auto) 0.0, Basophils (%) (Auto) 0.2, Neutrophils # (Auto) 19.9H, Lymphocytes # (Auto) 2.6, Monocytes # (Auto) 1.1H, Eosinophils # (Auto) 0.0, Basophils # (Auto) 0.0, Immature Granulocyte # (Auto) 0.2H, Nucleated Red Blood Cells % (auto) 0.0, Platelet Estimate , Anion Gap 8, Glomerular Filtration Rate > 60.0, Calcium Level 8.6, Total Bilirubin 0.4, Direct Bilirubin < 0.1, Aspartate Amino Transf (AST/SGOT) 46H, Alanine Aminotransferase (ALT/SGPT) 34, Alkaline Phosphatase 225H, Total Creatine Kinase 77, Creatine Kinase MB 3.6, Creatine Kinase MB Relative Index 4.68H, Troponin I < 0.02, TV-Fnm-R-Type Natriuretic Peptide 2103H, Total Protein 6.8, Albumin 1.9L, Albumin/Globulin Ratio 0.39L CBC/BMP Laboratory Tests 03/03/20 16:28 Assessment/Plan 39 yo M recently diagnosed with stage IIIB VICTORINA NSCLC who presents with one week worsening LE edema with anasarca and warm, erythematous bilateral LE with open bullae with associated pain and found to have +SIRS likely septic from soft tissue infection with leukocytosis, tachycardia and a potential source. Sepsis: +SIRS with leukocytosis, tachycardia, potential source with open lesions with hot erythematous legs in the setting of anasarca -s/p ceftriaxone in the ED -give 1 dose of vanc, MRSA PCR -although the notion of bilateral cellulitis is unlikely, given the open bullae there is a high likelihood of translocation of skin elise to have resulted in a soft tissue infection in both legs -blood cultures Anasarca: Timeline suggestive of a rapid process? if truly reportedly within 1 week -Will consider cardiac etiology given elevated proBNP though unlikely 2/2 ACS event with stable non ischemic EKG and negative troponin with no note arrythmias with sinus tachycardia --> obtain TTE -Has a significant protein gap with total protein of 7 and albumin of 1.9, c/f paraproteinemia --> SPEP, UPEP -Urinalysis and random total protein to investigate proteinuria -LFTS were unremarkable -Given the recent malignancy diagnosis there is possibility of paraneoplastic phenomena, perhaps vasculitides? May consider consulting dermatology in the near future -US doppler was negative for DVT and patient is also on ppx xarelto at 10 QD -Would like to trial diuretics + albumin but is septoid and will wait for now NSCLC: -will consult heme/onc in the AM -has ongoing immunotyping, with upcoming plan for cisplatin/premetrexed. Has not yet begun treatment -continue pain control per oncology outpatient plan -In addition to mass, CXR also with a small L pleural effusion, currently stable on room air, will monitor DVT ppx: on xarelto 10 QD Diet: regular Dispo: med/surg Plan / VTE VTE Prophylaxis Ordered?: Yes BRENDA AGUIRRE MD Mar 03, 2020 19:52
[2020-03-03 20:23] VITALS: BP 132/92
[2020-03-03] MEDS: SYMBICORT 160/4.5MCG INHALER 6GM INH SCH (21:00)
[2020-03-03] MEDS: MORPHINE 30 MG SA TAB PO SCH (21:02)
--- NOTE | 2020-03-03 22:22 | ECGEPIP ---
[facility] - ED Test Date: 2020-03-03 Pat Name: DANIELA HADDAD Department: Room: - Gender: Male Medical Affairs Manager: tolu : 1980 Requested By: JUNIOR HALLMAN Order Number: [id number] Reading MD: Scott Ocnonor Measurements Intervals Scott Rate: 113 P: 70 ND: 132 QRS: 81 QRSD: 104 T: 50 QT: 324 QTc: 446 Interpretive Statements SINUS TACHYCARDIA INCOMPLETE RIGHT BUNDLE BRANCH BLOCK NONSPECIFIC T-WAVE ABNORMALITY Baseline artifact Rate increased from tracing done 10-24-17 Electronically Signed on 03-03-2020 22:21:43 EDT by Scott Oconnor
--- NOTE | 2020-03-04 01:31 | REP ---
REASON FOR EXAM: History of lung carcinoma. COMPARISON EXAMINATION: 02/25/2020 The technique utilized in obtaining the radiograph has magnified the cardiac silhouette and accentuated the interstitial markings. Large opacity in the left upper lobe has increased in size. There is now costophrenic angle and cardiophrenic angle blunting on the left. There is no change in the right lung. There is no change in the Mediport. There is no change in the osseous structures. IMPRESSION: Worsening left hemithoracic opacity and now with a small to moderate left pleural effusion. Electronically Signed by Jamie Ramos DO 03/04/2020 07:57 A
--- NOTE | 2020-03-04 01:42 | REP ---
DEEP VENOUS ULTRASONOGRAPHY BILATERAL THIGH, RULE OUT DVT: REASON: Pain and swelling. TECHNIQUE: Multiple ultrasonographic images of the deep venous structures of the thigh were obtained from the common femoral vein to the popliteal vein along with Doppler interrogation and color flow Doppler images. FINDINGS: There is no abnormal echogenic material seen within any of the visualized deep venous structures that would suggest acute thrombosis. Coaptation is unremarkable throughout. Doppler interrogation shows an expected response to respiratory variability and augmentation. The color flow images show what appears to be a normal vascular pattern throughout. IMPRESSION: There is no ultrasonographic evidence of deep venous thrombosis involving any of the visualized deep venous structures of the bilateral thigh, as described above. Electronically Signed by Jamie Ramos DO 03/04/2020 07:58 A
[2020-03-04] MEDS ORDERED: VANCOMYCIN HCL 1,000 MG, VIAL MATE ADAPTER 1 EACH in D5W 250 ML IV SCH ×2 (04:00→14:00)
[2020-03-04] MEDS: MORPHINE 30 MG SA TAB PO SCH ×3 (04:59→21:20)
[2020-03-04 05:05] VITALS: BP 129/89
[2020-03-04 06:14] LABS: APPEARANCE, URINE CLEAR (CLEAR); BACTERIA, URINE AUTO NEGATIVE (NEGATIVE); BILIRUBIN, URINE AUTO NEGATIVE (NEGATIVE); BLOOD, URINE BLOOD NEGATIVE (NEGATIVE); COLOR, URINE YELLOW (YELLOW); GLUCOSE, URINE (UA) AUTO NEGATIVE (NEGATIVE); KETONE, URINE AUTO NEGATIVE (NEGATIVE); LEUKOCYTE ESTERASE, URINE AUTO NEGATIVE (NEGATIVE); MUCUS, URINE SMALL (NEGATIVE); NITRITE, URINE AUTO NEGATIVE (NEGATIVE); PROTEIN, URINE AUTO NEGATIVE (NEGATIVE); RBC, URINE AUTO 1 /HPF (0-3); SPECIFIC GRAVITY URINE AUTO 1.025 (1.002-1.035); SQUAMOUS EPITHELIAL CELL UR AU 0 /HPF (0-6); WBC, URINE AUTO 2 /HPF (0-3)
[2020-03-04 06:22] LABS: TOTAL PROTEIN,RANDOM URINE 51.7 MG/DL (0.0-12.0)
[2020-03-04 07:06] LABS: HEMATOCRIT 27.8 % (42.0-52.0); HEMOGLOBIN 8.7 g/dl (13.5-17.5); MEAN CORPUSCULAR HEMOGLOBIN 24.2 pg (27.0-33.0); MEAN CORPUSCULAR HGB CONC 31.3 g/dl (32.0-36.5); MEAN CORPUSCULAR VOLUME 77.2 fl (80.0-96.0); PLATELET COUNT, AUTOMATED 454 10^3/uL (150-450); WHITE BLOOD COUNT 24.7 10^3/uL (4.0-10.0)
[2020-03-04 07:08] LABS: BLOOD UREA NITROGEN 13 MG/DL (7-18); CARBON DIOXIDE LEVEL 25 MEQ/L (21-32); CHLORIDE LEVEL 100 MEQ/L (98-107); CREATININE FOR GFR 0.43 MG/DL (0.70-1.30); GLOMERULAR FILTRATION RATE > 60.0 (>60); GLUCOSE, FASTING 114 MG/DL (70-100); MAGNESIUM LEVEL 1.9 MG/DL (1.8-2.4); POTASSIUM SERUM 4.1 MEQ/L (3.5-5.1); SODIUM LEVEL 133 MEQ/L (136-145)
[2020-03-04] MEDS: SYMBICORT 160/4.5MCG INHALER 6GM INH SCH ×2 (07:12→19:35)
[2020-03-04] MEDS: FOLIC ACID 1 MG TAB PO SCH (08:21)
[2020-03-04 08:47] LABS: TOTAL PROTEIN 6.3 GM/DL (6.4-8.2)
[2020-03-04] MEDS ORDERED: INFLUENZA QUADRIVALENT PF VACCINE 0.5ML SYRINGE (90686) IM ONE (09:00)
--- NOTE | 2020-03-04 10:47 | IPNPDOC ---
Text Note Date of Service The patient was seen on 03/04/20. NOTE Subjective: -No issues overnight Objective: Physical Examination General: Alert, No Acute Distress Eye: PERRLA, has bilateral punctate hemorrhages, otherwise anicteric, no inje ction ENT: Atraumatic, MMM Neck: supple, no adenopathy, JVD or thyromegaly Chest: Posterior left lower diminished, otherwise breathing comfortably on room air, no wheezing or rhonchi Heart: Tachycardic, Regular Rhythm, no murmurs Abdomen: Normal bowel sounds, soft, NTND Extremity: bilateral LE edema to thighs, WWP Skin : open bullae, dried up multiple open lesions, erythema, warm ankle to sub-knee region bilaterally, with stable marked borders without recession Neuro: Normal Speech, Strength at 5/5 X4 ext, Cranial Nerves 3-12 NL Psych: Alert and Oriented x 3 Labs: WBC 24.7 Hgb 8.7 platelets 454 na 133 K 4.1 Cr 0.43 mag 1.9 Uprot per UA negative Total random urine protein - high at 51.7 Assessment: 39 yo M recently diagnosed with stage IIIB VICTORINA NSCLC who presents with one week worsening LE edema with anasarca and warm, erythematous bilateral LE with open bullae with associated pain and found to have +SIRS likely septic from soft tissue infection with leukocytosis, tachycardia and a potential source. Sepsis: +SIRS with leukocytosis, tachycardia, potential source with open lesions with hot erythematous legs in the setting of anasarca -s/p ceftriaxone in the ED -dc vanc with MRSA negative, and start empiric ceftriaxone -although the notion of bilateral cellulitis is unlikely, given the open bullae there is a high likelihood of translocation of skin elise to have resulted in a soft tissue infection in both legs sow ill continue abx for now -blood cultures NGTD Anasarca: Timeline suggestive of an acute process? if truly reportedly within 1 week -Will consider cardiac etiology given elevated proBNP though unlikely 2/2 ACS event with stable non ischemic EKG and negative troponin with no note arrhythmias with sinus tachycardia --> pending TTE -Has a significant protein gap with total protein of 7 and albumin of 1.9, c/f paraproteinemia --> SPEP, UPEP ordered -Urinalysis without reported proteinuria, however random total protein high -LFTS were unremarkable -Given the recent malignancy diagnosis there is possibility of paraneoplastic phenomena, or perhaps vasculitides? May consider consulting dermatology in the near future, for now will speak with oncologist -US doppler was negative for DVT and patient is also on ppx xarelto at 10 QD -Would like to trial diuretics + albumin but is septoid and will wait for now NSCLC: -will consult heme/onc in the AM -has ongoing immunotyping, with upcoming plan for cisplatin/premetrexed. Has not yet begun treatment -continue pain control per oncology outpatient plan -In addition to mass, CXR also with a small L pleural effusion, currently stable on room air, will monitor DVT ppx: on xarelto 10 QD Diet: regular Dispo: med/surg VS,Fishbone, I+O VS, Fishbone, I+O Laboratory Tests 03/03/20 16:28 03/04/20 06:33 Vital Signs Date Time Temp Pulse Resp B/P (MAP) Pulse Ox O2 Delivery O2 Flow Rate FiO2 03/04/20 05:05 98.7 108 18 129/89 (102) 97 Room Air I&O- Last 24 Hours up to 6 AM 03/04/20 06:00 Intake Total 690 ml Output Total 380 ml Balance 310 ml BRENDA AGUIRRE MD Mar 04, 2020 08:51
[2020-03-04 14:00] VITALS: BP 145/93
[2020-03-04] MEDS: oxyCODONE 5MG TAB PO PRN (17:07)
[2020-03-04] MEDS: RIVAROXABAN 10 MG TAB (XARELTO) PO SCH (17:07)
[2020-03-04 22:00] VITALS: BP 143/93
[2020-03-04] MEDS ORDERED: cefTRIAXone SOD 2 GM VIAL (J0696 PER 250MG) IM SCH (22:45)
[2020-03-05] MEDS: cefTRIAXone SOD 1 GM in D5W MINI-BAG PLUS 50 ML IV SCH ×2 (00:25→13:40)
[2020-03-05] MEDS: MORPHINE 30 MG SA TAB PO SCH ×3 (05:47→19:58)
[2020-03-05 06:00] VITALS: BP 139/92
[2020-03-05 06:04] LABS: HEMATOCRIT 27.7 % (42.0-52.0); HEMOGLOBIN 8.7 g/dl (13.5-17.5); MEAN CORPUSCULAR HEMOGLOBIN 24.1 pg (27.0-33.0); MEAN CORPUSCULAR HGB CONC 31.4 g/dl (32.0-36.5); MEAN CORPUSCULAR VOLUME 76.7 fl (80.0-96.0); PLATELET COUNT, AUTOMATED 402 10^3/uL (150-450); RED BLOOD COUNT 3.61 10^6/uL (4.30-6.10); WHITE BLOOD COUNT 22.7 10^3/uL (4.0-10.0)
[2020-03-05] MEDS: FOLIC ACID 1 MG TAB PO SCH (08:38)
[2020-03-05] MEDS: SYMBICORT 160/4.5MCG INHALER 6GM INH SCH ×2 (09:00→20:52)
[2020-03-05 09:46] LABS: ERYTHROCYTE SEDIMENTATION RATE 74 mm/hr (0-15)
[2020-03-05 13:11] LABS: COMPLEMENT C3 119 MG/DL (90-180); COMPLEMENT C4 22 MG/DL (10-40); RHEUMATOID FACTOR QUANT < 10.0 IU/ML (<15.0)
--- NOTE | 2020-03-05 13:16 | IPNPDOC ---
Text Note Date of Service The patient was seen on 03/05/20. NOTE Subjective: -No issues overnight, feels SOB with exertion Objective: Physical Examination General: Alert, No Acute Distress Eye: PERRLA, has bilateral punctate hemorrhages, otherwise anicteric, no injection ENT: Atraumatic, MMM Neck: supple, no adenopathy, JVD or thyromegaly Chest: Posterior left lower diminished, otherwise breathing comfortably on room air, no wheezing or rhonchi Heart: Tachycardic, Regular Rhythm, no murmurs Abdomen: Normal bowel sounds, soft, NTND Extremity: bilateral LE edema to thighs, WWP Skin : open bullae, dried up multiple open lesions, erythema, warm ankle to sub- knee region bilaterally, with stable marked borders without recession Neuro: Normal Speech, Strength at 5/5 X4 ext, Cranial Nerves 3-12 NL Psych: Alert and Oriented x 3 Labs: WBC 22.7 Hgb 8.7 platelets 402 pending BMP pending SPEP, UPEP, CRP, ESR Uprot per UA negative Total random urine protein - high at 51.7 Assessment: 39 yo M recently diagnosed with stage IIIB VICTORINA NSCLC who presents with one week worsening LE edema with anasarca and warm, erythematous bilateral LE with open bullae with associated pain and found to have +SIRS likely septic from soft tissue infection with leukocytosis, tachycardia and a potential source however without recession of erythema. Sepsis: +SIRS with leukocytosis, tachycardia, potential source with open lesions with hot erythematous legs in the setting of anasarca -continue empiric ceftriaxone for now -although the notion of bilateral cellulitis is unlikely, given the open bullae there is a high likelihood of translocation of skin elise to have resulted in a soft tissue infection in both legs so will continue abx for now -blood cultures NGTD -Elevated ESR, CRP, with pending SPEP, UPEP and vasculitides workup Anasarca: Timeline suggestive of an acute process? if truly reportedly within 1 week -Will consider cardiac etiology given elevated proBNP though unlikely 2/2 ACS event with stable non ischemic EKG and negative troponin with no note arrhythmias with sinus tachycardia --> pending TTE -Has a significant protein gap with total protein of 7 and albumin of 1.9, c/f paraproteinemia --> SPEP, UPEP ordered -Urinalysis without reported proteinuria, however random total protein high, c/f for low molecular weight protein likely Bence almeida? -LFTS were unremarkable -Given the recent malignancy diagnosis there is possibility of paraneoplastic phenomena, or perhaps vasculitides? ordered ANCA, RF, C3, C4 -US doppler was negative for DVT and patient is also on ppx xarelto at 10 QD -Swelling has improved without diuretics but the erythema and almost purpuric appearance, called dermatology consult today (Dr. Ford) NSCLC: -Spoke with Dr. Hendricks and updated him about ongoing infectious vs. autoimmune/paraneoplastic workup for his LE edema -has ongoing immunotyping, with upcoming plan for cisplatin/premetrexed. Has not yet begun treatment -continue pain control per oncology outpatient plan -In addition to mass, CXR also with a small L pleural effusion, currently stable on room air, will monitor DVT ppx: on xarelto 10 QD Diet: regular Dispo: med/surg VS,Fishbone, I+O VS, Fishbone, I+O Laboratory Tests 03/05/20 05:50 Vital Signs Date Time Temp Pulse Resp B/P (MAP) Pulse Ox O2 Delivery O2 Flow Rate FiO2 03/05/20 06:00 98.3 116 21 139/92 (108) 92 Room Air I&O- Last 24 Hours up to 6 AM 03/05/20 06:00 Intake Total 1550 ml Output Total 0 ml Balance 1550 ml BRENDA AGUIRRE MD Mar 05, 2020 09:04
[2020-03-05 14:00] VITALS: BP 133/89
--- NOTE | 2020-03-05 17:17 | CR.PDOC ---
General Date of Consultation: Mar 05, 2020 Referring Provider: BRENDA AGUIRRE MD Attending Physician: CRUZITO HWANG MD Consultation REASON FOR CONSULTATION/CHIEF COMPLAINT: Stage IIIB non-small cell lung adenocarcinoma left upper lobe with lymph node metastasis. 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 PDL1 10-20% positive HISTORY OF PRESENT ILLNESS: Patient has been diagnosed with Left upper lobe non-small cell lung carcinoma stage IIIB T4N2 with tumor extension to the pleura and pressing against posterior rib. Patient's been having cancer related pain and sensitive failure to thrive. Patient's had cancer related anemia, thrombocytosis and leukocytosis. Patient reports that he had a six-month history of pain beginning around September in the left upper back. Pain became significant and finally went to see his primary care physician. CT of the chest was performed 01/10/2020 which showed very large 7.1 x 7.2 x 6.3 cm mass left upper lobe with hilar and mediastinal involvement. Biopsy revealed non-small cell lung carcinoma. Second biopsy performed for molecular typing shows no actionable mutations. PET/CT scan showed no evidence of distant metastatic disease. Patient did develop some lower extremity edema on top of his feet associated with a low albumin when I last saw him in the office. Patient scheduled to start chemoradiotherapy this week Patient admitted with lower extremity edema and significant erythema involving skin bilateral below-knee mid calf area . Patient treated empirically with IV a ntibiotics without clinical response Patient has been afebrile Low extremity edema improved with patient raising legs Case discussed with radiation oncology Recommend proceeding with radiation therapy Will hold chemotherapy this week to concern of infection DIAGNOSTIC IMAGING AND PATHOLOGY 02/06/2020 repeat biopsy negative for ALK, EGFR, ROS1, BRAF testing. Positive for PDL1 10-20% 02/05/2020 MRI of the brain shows no evidence of metastatic disease 02/04/[address] scan revealed significant activity left upper lung with an SUV of 24.35 erosive changes seen in the left posterior fourth rib metastatic focus with activity in the mediastinum and left hilar adenopathy. No evidence of metastatic disease on the right side. 01/28/2020 CT chest reveals 7.8 x 5.5 x 7.0% left apical mass completed extrinsic compression of the left main pulmonary artery measuring 7.6 x 9.3 x 10.7 cm further left mediastinal and hilar adenopathy measuring up to 3.9 cm in diameter 01/18/20 CT guided VICTORINA BX - nonsmall cell carcinoma. Specimen predominantly necrotic with small focus of viable tumor cells. Precludes any molecular studies. 01/10/20 CT chest [facility] VICTORINA mass 7.1 x 7.2 x 6.3 cm abutting pleural space and posterior ribs #2-5 with tiny cortical defect or disruption of posterior aspect of left 3rd rib. May imply early chest wall invasion and rib destruction, left hilar and mediastinal LAD, confluent LAD left AP window - 7.8 x 6.2 x 6.2 cm. Multifocal dilated peripheral bronchi versus more cavitary nodules VICTORINA. 02/06/2020. Patient tumor adenocarcinoma. PDL 1 +20% negative for all other actual mutations Past medical/Surgical History: Will be advanced lung cancer as above Abdominal hernia repair as an infant. Family History: Father - patient listed prostate cancer in his report but corrects this to be colon cancer - age 56, then brain cancer in his 60s - unclear if the latter was a primary or metastatic disease. Mother lung cancer, age 61. No siblings. Paternal aunt had breast cancer, age of diagnosis unknown. No other history of malignancies or blood dyscrasias. Social History: Smoking - 1 PPD x 25 years till date. Alcohol - Social use, not since mid 2019. Drug Use - Marijuana since his 20s til date. HOME MEDICATIONS: Please see below. REVIEW OF SYSTEMS: 15 point review of systems positive for: Ongoing weight loss conservative thrive Lower Extremity edema New redness bilateral legs Cancer related pain with radiation to left upper back Reactive depression Nervous system primary systems are negative PHYSICAL EXAMINATION: VITAL SIGNS: Please see below. GENERAL APPEARANCE: Alert oriented in mild distress HEENT: No thrush, dentition in fair repair RESPIRATORY: Decreased breath sounds left mid and upper lung zone otherwise clear CARDIOVASCULAR: Regular rate and rhythm without murmur or gallop ABDOMEN: No pedal splenomegaly no problem masses EXTREMITIES: Significant erythema to bilateral skin beginning below knees and involving calf area. This is a new finding. 1+ edema noted NEUROLOGICAL: Nonfocal, moving all extremities, K preserved PSYCHIATRIC: Normal mood. LABORATORY DATA: Please see below. ASSESSMENT/PLAN: ASSESSMENT 1. Left upper lobe non-small cell lung carcinoma stage IIIB T4N2 with tumor extension to the pleura and pressing against posterior rib 2. Cancer related pain improved and stable on current treatment milieu. Patient admitted Tylenol to help improve pain control 3. Cancer related leukocytosis, anemia and thrombocytosis due to inflammatory c ondition 4. Successful port placement right upper chest 5. Hypoalbuminemia induced and sedentary condition induced lower extremity edema involving mainly feet 6. 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 For cancer pain continue morphine sulfate extended release 30 mg by mouth 3 times a day and short acting oxycodone 10 mg pills 1 every 4 hours as needed for cancer pain. Patient may use Tylenol as needed up to 4 g per day 2. Proceed with radiation therapy to start March 06 3. Delay chemotherapy until next week and proceed with cisplatin, pemetrexed 3 cycles option for 4 additional cycles of pemetrexed after, followed by restaging and potentially immunotherapy times one year with durvalumab 4. Continue folic acid 1 mg daily as needed prior to pemetrexed 5. Continue rivaroxaban 10mg/day due to pulmonary artery compression and concern for PE development once response seen 6. Skin biopsy is pending and recommended 7. No contraindication for steroid use if concern for paraneoplastic vasculitis is etiology of lower extremity erythema or other condition that would respond to steroid use. Total time on care 70 minutes with more than 50% of the time counseling and coordination of care Case discussed with Dr. Frederick Case discussed with attending Case discussed with RN Vital Signs/I&O Vital Signs Date Time Temp Pulse Resp B/P (MAP) Pulse Ox O2 Delivery O2 Flow Rate FiO2 03/05/20 14:00 98.5 120 18 133/89 (104) 90 Room Air I&O- Last 24 Hours up to 6 AM 03/05/20 06:00 Intake Total 1550 ml Output Total 0 ml Balance 1550 ml Laboratory Data Labs 24H Laboratory Tests 2 03/04/20 19:42: Bedside Glucose (Misc Panel) 115H 03/05/20 05:39: Bedside Glucose (Misc Panel) 111H 03/05/20 05:48: C-Reactive Protein, Quantitative 10.50H, Rheumatoid Factor < 10.0, Complement C3 119, Complement C4 22 03/05/20 05:50: Nucleated Red Blood Cells % (auto) 0.0, Erythrocyte Sedimentation Rate 74H 03/05/20 11:22: Bedside Glucose (Misc Panel) 109H CBC/BMP Laboratory Tests 03/05/20 05:50 Microbiology Microbiology 03/03/20 Blood Culture - Preliminary, Resulted No growth after 24 hours . All specim... 03/03/20 Blood Culture - Preliminary, Resulted No growth after 24 hours . All specim... Allergies Coded Allergies: Penicillins (Verified Allergy, Unknown, 01/10/20) Home Medications Scheduled Budesonide/Formoterol (Symbicort 160-4.5 Mcg Inhaler) 6 Gm Hfa.aer.ad, 2 PUFF INH BID, (Reported) Doxycycline Monohydrate (Doxycycline Monohydrate) 100 Mg Capsule, 100 MG PO BID, (Reported) Folic Acid (Folic Acid) 1 Mg Tablet, 1 MG PO DAILY, #90 (Reported) Morphine Sulfate (Morphine Sulfate ER) 30 Mg Tablet.er, 30 MG PO TID, (Reported) MDD 3 TABS Rivaroxaban (Xarelto) 10 Mg Tablet, 10 MG PO DAILY, (Reported) Scheduled PRN Albuterol Sulfate (Ventolin Hfa) 18 Gm Hfa.aer.ad, 2 PUFFS PO QID PRN for SHORTNESS OF BREATH, #1 (Reported) Oxycodone HCl (Oxycodone HCl) 10 Mg Tablet, 10 MG PO Q4HP PRN for PAIN, (Reported) CANCER RELATED PAIN MDD 6 TABS Prochlorperazine (Prochlorperazine Maleate) 5 Mg Tablet, 5 MG PO TID PRN for NAUSEA, (Reported) FOR USE WHEN ON CHEMOTHERAPY CRUZITO HWANG MD Mar 05, 2020 17:17
[2020-03-05] MEDS: RIVAROXABAN 10 MG TAB (XARELTO) PO SCH (17:42)
[2020-03-05] MEDS: oxyCODONE 5MG TAB PO PRN (19:59)
[2020-03-05 22:00] VITALS: BP 123/82
[2020-03-06] MEDS: cefTRIAXone SOD 1 GM in D5W MINI-BAG PLUS 50 ML IV SCH (00:34)
[2020-03-06] MEDS: oxyCODONE 5MG TAB PO PRN ×4 (00:34→17:02)
--- NOTE | 2020-03-06 01:39 | ECHO ---
DATE OF PROCEDURE: 03/05/2020 REFERRING PHYSICIAN: Dr. Sherrill Lees INDICATION: Edema. HEIGHT: 173 cm WEIGHT: 59 kg 2D MEASUREMENTS: Aortic root: 3.2 cm Aortic annulus: 2.2 cm Left atrium: 2.7 cm Ventricular septum: 1.57 cm Posterior wall: 2.22 cm Left ventricle diastole: 3.1 cm Inferior vena cava: 1.6 cm DOPPLER MEASUREMENTS: No aortic regurgitation. No aortic stenosis. Aortic valve velocity: 113 cm/s LVOT velocity 104 cm/s LVOT VTI: 73.1 cm Trace mitral regurgitation. No mitral stenosis. Trace tricuspid regurgitation. No tricuspid stenosis. Trace pulmonic regurgitation. Pulmonary acceleration time: 116 ms MITRAL ANNULAR TISSUE DOPPLER: E prime septal: 11.1 cm/s E prime lateral: 7.9 cm/s DESCRIPTION: Rhythm was sinus tachycardia. Image quality overall was good. This was a 2D, M-mode, color flow Doppler, and pulse wave Doppler examination, including mitral annular tissue Doppler. CONCLUSIONS: 1. Small circumferential pericardial effusion measuring 7.8 mm over the lateral wall of the left ventricle and 4.6 mm over the posterior wall of the left ventricle. No diastolic chamber collapse. No significant respiratory variation of intracardiac velocities. 2. Bilateral pleural effusions. Irregular pleural thickening of the pleura on the left side. 3. Severe concentric left ventricle hypertrophy. Reduced left ventricle (LV) diastolic cavity size secondary to left ventricle hypertrophy (LVH). No regional wall motion abnormalities of the left ventricle. Hyperdynamic LV systolic function. Left ventricular ejection fraction (LVEF) 70% by visual estimate. Incomplete assessment of LV diastolic function on this study. LV diastolic function difficult to fully determine due to presence of sinus tachycardia. 4. Normal right ventricle size and systolic function. 5. Increased thickening of the interatrial septum and right atrial free wall. RECOMMENDATIONS: Recommend CT scan of the chest if one has not already been obtained on this hospitalization. CT scan of the chest will be important to assess for a possible malignant process.
[2020-03-06] MEDS: ACETAMINOPHEN TAB 650MG DOSE (2X325MG) PO PRN ×2 (02:41→21:04)
[2020-03-06] MEDS: MORPHINE 30 MG SA TAB PO SCH ×3 (04:54→21:00)
[2020-03-06 06:00] VITALS: BP 127/87
[2020-03-06 06:10] LABS: HEMATOCRIT 28.2 % (42.0-52.0); HEMOGLOBIN 8.9 g/dl (13.5-17.5); MEAN CORPUSCULAR HEMOGLOBIN 24.6 pg (27.0-33.0); MEAN CORPUSCULAR HGB CONC 31.6 g/dl (32.0-36.5); MEAN CORPUSCULAR VOLUME 77.9 fl (80.0-96.0); PLATELET COUNT, AUTOMATED 365 10^3/uL (150-450); RED BLOOD COUNT 3.62 10^6/uL (4.30-6.10); WHITE BLOOD COUNT 21.9 10^3/uL (4.0-10.0)
[2020-03-06 06:39] LABS: BLOOD UREA NITROGEN 20 MG/DL (7-18); CALCIUM LEVEL 8.7 MG/DL (8.5-10.1); CARBON DIOXIDE LEVEL 24 MEQ/L (21-32); CHLORIDE LEVEL 99 MEQ/L (98-107); CREATININE FOR GFR 0.57 MG/DL (0.70-1.30); GLOMERULAR FILTRATION RATE > 60.0 (>60); GLUCOSE, FASTING 98 MG/DL (70-100); POTASSIUM SERUM 4.3 MEQ/L (3.5-5.1); SODIUM LEVEL 133 MEQ/L (136-145)
[2020-03-06] MEDS: SYMBICORT 160/4.5MCG INHALER 6GM INH SCH ×2 (07:31→18:12)
[2020-03-06] MEDS: FOLIC ACID 1 MG TAB PO SCH (08:20)
[2020-03-06 12:46] LABS: ALBUMIN % 33.6 % (55.8-66.1); ALPHA-1-GLOBULIN % 11.4 % (2.9-4.9); ALPHA-2-GLOBULINS % 18.1 % (7.1-11.8)
[2020-03-06 12:47] LABS: ALBUMIN 2.12 GM/DL (3.29-5.55); ALPHA-1-GLOBULINS 0.72 GM/DL (0.17-0.41); ALPHA-2-GLOBULINS 1.14 GM/DL (0.42-0.99); BETA-1-GLOBULINS 0.47 GM/DL (0.28-0.60); BETA-1-GLOBULINS % 7.4 % (4.7-7.2); BETA-2-GLOBULINS 0.58 GM/DL (0.19-0.55); BETA-2-GLOBULINS % 9.2 % (3.2-6.5); GAMMA GLOBULIN % 20.3 % (11.1-18.8); GAMMA GLOBULINS 1.28 GM/DL (0.65-1.58)
--- NOTE | 2020-03-06 14:33 | CR.PDOC ---
General Date of Consultation: Mar 06, 2020 Attending Physician: BRENDA AGUIRRE MD Consultation REASON FOR CONSULTATION/CHIEF COMPLAINT: Rash on bilateral lower legs in setting of lung cancer diagnosis HISTORY OF PRESENT ILLNESS: 39 yo white smoker with recently diagnosed VICTORINA lung cancer pending starting chemo/XRT who presented to the ED per recommendation of his oncologist for worsening LE edema now with bilateral erythematous patches and crusted over blisters. He reports this to have started 10 days ago and has gradually worsened with development of LE pain as well. He otherwise denies fever, chills, N/V/chest pain/palpitations/syncope/abdominal more than his usual baseline pain. In the ED, his WBC was 25.2 (>80% neutrophils), hgb 8.9, platelets 448, Na 134, sCr 0.5, LFTs showed protein of 6.8 with albumin of 1.9 and proBNP of 2103. EKG was non ischemic with an incomplete RBBB and troponin was negative. He had bilateral venous Doppler US that was negative for DVT and CXR with previously noted VICTORINA mass and small L pleural effusion. He was given a dose of ceftriaxone and was admitted to medicine where he was given vanc and ceftriaxone without improvement to lower extremities, redness did not spread. He states his swelling is reduced by a large portion in the lower legs. ALLERGIES: Please see below. HOME MEDICATIONS: Please see below. Past medical/Surgical History: Will be advanced lung cancer as above Abdominal hernia repair as an infant. Family History: Father - patient listed prostate cancer in his report but corrects this to be colon cancer - age 58, then brain cancer in his 60s - unclear if the latter was a primary or metastatic disease. Mother lung cancer, age 61. No siblings. Paternal aunt had breast cancer, age of diagnosis unknown. No other history of malignancies or blood dyscrasias. Social History: Smoking - 1 PPD x 25 years till date. Alcohol - Social use, not since mid 2019. Drug Use - Marijuana since his 20s until date. REVIEW OF SYSTEMS: Constitutional: Denies: Chills, Fever, Night Sweats Eyes: Denies: Pain, Vision change ENT: Denies: Head Aches, Ear Pain, Dysphagia Skin: Endorses: Swelling up to thighs that has improved in last several days, rash on lower legs with blisters, very weepy several days ago Pulmonary: Denies: Dyspnea, Cough Cardiovascular: Denies: Chest Pain, Palpitations, Orthopnea, Paroxysmal Noc. Dy spnea, Lt Headedness Gastrointestinal: Denies: Nausea, Vomiting, Abdominal Pain, Diarrhea Genitourinary: Denies: Dysuria, Frequency, Incontinence, Retention Endocrine: Denies: Polydipsia, Polyphagia, Polyuria, Heat Intolerance, Cold Intolerance Musculoskeletal: Reports: Back Pain (chronic cancer pain ) Neurological: Denies: Weakness, Numbness, Change in speech, Confusion Psych: Reports: Mood Normal; Denies: Depression, Memory Issues PHYSICAL EXAMINATION: VITAL SIGNS: Please see below. GENERAL APPEARANCE: WDWNWM IN NAD SITTING IN CHAIR, DIFFUSELY EDEMATOUS HEENT: EOMI RESPIRATORY: RRR FLUID STATUS: 2-3 + EDEMA TO THE KNEES ABDOMEN: Soft, supple EXTREMITIES: BILATERAL LOWER EXTREMITIES WITH PURPURIC PATCHES WITH CRUSTS, NON- BLANCHING, NO DISCRETE PAPULES NEUROLOGICAL: AOX3 PSYCHIATRIC: MOOD CONGRUENT, PLEASANT BUT RESERVED LABORATORY DATA: Please see below. ASSESSMENT/PLAN: 39 yo WM with recent diagnosis of non-small cell lung carcinoma stage IIIB T4N2 with tumor extension to the pleura and pressing against posterior rib presented with anasarca and an albumin < 2 with high WBC (mostly neutrophilic) with concern for cellulitis and sepsis on admission not improved (lower extremities) but with improved edema since admission. 1. Stasis dermatitis: Bilateral lower extremities. Purpuric, hemorrhagic. No palpable purpura present. Given blisters and weepy nature, I favor acute process, essentially bleeding into the skin and weeping through the skin with fluid. Recommendations: - Optimize nutrition given low albumin and cancer diagnosis - Elevate legs at rest (use pillows) - Compression wrappings to the lower legs up to the knees - If weepy - use Domeboro packets as directed (usually 1-3 packets into 1 pint of cool water), apply for 15-20 minutes then apply steroid to area; store remainder in refrigerator for use in future; can do BID with the topical steroid below - Use triamcinolone 0.1 ointment BID to areas on lower legs when red and flaring (can do Domeboro soaks as above if weepy) - May benefit from lymphatic massage from foot working up through thigh for 15 minutes every day (would need someone at home who could do this) - No reason to keep in hospital from the point of view of this rash - Does not appear like a paraneoplastic syndrome or a paraneoplastic vasculitis (appearance is more like LCV/Henoch-Schnlein purpura in that case): happy to discuss case literature on PNP syndromes if desired 2. Elevated WBC: Favor 2/2 to inflammation associated with cancer (may get worse with steroids for neutrophil count) Dermatology is signing off on this consultation. Thank you for involving us in this patient's care. We are happy to see him as an outpatient follow up in dermatology, please call [phone] if you would like to schedule prior to discharge. Israel Raya MD FAAD [phone] Vital Signs/I&O Vital Signs Date Time Temp Pulse Resp B/P (MAP) Pulse Ox O2 Delivery O2 Flow Rate FiO2 03/06/20 10:50 18 03/06/20 06:00 98.8 119 127/87 (100) 93 Room Air I&O- Last 24 Hours up to 6 AM 03/06/20 06:00 Intake Total 1950 ml Output Total 0 ml Balance 1950 ml Laboratory Data Labs 24H Laboratory Tests 2 03/06/20 05:43: Nucleated Red Blood Cells % (auto) 0.0, Anion Gap 10, Glomerular Filtration Rate > 60.0, Calcium Level 8.7 CBC/BMP Laboratory Tests 03/06/20 05:43 Microbiology Microbiology 03/03/20 Blood Culture - Preliminary, Resulted No Growth after 48 hours. All Specime... 03/03/20 Blood Culture - Preliminary, Resulted No Growth after 48 hours. All Specime... Allergies Coded Allergies: Penicillins (Verified Allergy, Unknown, 01/10/20) Home Medications Scheduled Budesonide/Formoterol (Symbicort 160-4.5 Mcg Inhaler) 6 Gm Hfa.aer.ad, 2 PUFF INH BID, (Reported) Doxycycline Monohydrate (Doxycycline Monohydrate) 100 Mg Capsule, 100 MG PO BID, (Reported) Folic Acid (Folic Acid) 1 Mg Tablet, 1 MG PO DAILY, #90 (Reported) Morphine Sulfate (Morphine Sulfate ER) 30 Mg Tablet.er, 30 MG PO TID, (Reported) MDD 3 TABS Rivaroxaban (Xarelto) 10 Mg Tablet, 10 MG PO DAILY, (Reported) Scheduled PRN Albuterol Sulfate (Ventolin Hfa) 18 Gm Hfa.aer.ad, 2 PUFFS PO QID PRN for SHORTNESS OF BREATH, #1 (Reported) Oxycodone HCl (Oxycodone HCl) 10 Mg Tablet, 10 MG PO Q4HP PRN for PAIN, (Reported) CANCER RELATED PAIN MDD 6 TABS Prochlorperazine (Prochlorperazine Maleate) 5 Mg Tablet, 5 MG PO TID PRN for NAUSEA, (Reported) FOR USE WHEN ON CHEMOTHERAPY ISRAEL RAYA MD Mar 06, 2020 12:02
[2020-03-06] MEDS: RIVAROXABAN 10 MG TAB (XARELTO) PO SCH (17:02)
--- NOTE | 2020-03-06 17:48 | IPNPDOC ---
Text Note Date of Service The patient was seen on 03/06/20. NOTE Subjective: -No issues overnight, feels SOB with exertion Objective: Physical Examination General: Alert, No Acute Distress, cachectic Eye: PERRLA, EOMI anicteric, no injection ENT: Atraumatic, MMM Neck: supple, no adenopathy, JVD or thyromegaly Chest: Posterior left lower diminished, otherwise breathing comfortably on room air, no wheezing or rhonchi Heart: Tachycardic, Regular Rhythm, no murmurs Abdomen: Normal bowel sounds, soft, NTND Extremity: bilateral LE edema to thighs, WWP Skin : open bullae, dried up multiple open lesions, purpuric dermatitis ankle to sub-knee region bilaterally, anasarca has improved from admission Psych: Alert and Oriented x 3 Labs: WBC 21.9 Hgb 8.9 Cr 0.57 C3, C4 wnl Assessment: 39 yo M recently diagnosed with stage IIIB VICTORINA NSCLC who presents with one week worsening LE edema with anasarca and warm, erythematous bilateral LE with open bullae with associated pain and found to have +SIRS initially thought to be septic from soft tissue infection with leukocytosis, tachycardia but with LE anasarca developing into be purpuric dermatitis without recession and being bilateral deemed not infectious. Consulted derm with c/f vasculitides and dermatology without concern, suggesting hemorrhagic elements from stasis dermatitis 2/2 low oncotic pressure secondary to poor nutrition. +SIRS: leukocytosis, tachycardia, potential source with open lesions with erythematous legs that turned into purpuric dermatitis in the setting of kun sarca. Unlikely infection, no improvement with antibiotics, leukocytosis, anemia and thrombocytosis thought 2/2 malignancy -blood cultures NGTD -Elevated ESR, CRP Anasarca: Timeline suggestive of an acute process? Most likely 2/2 poor nutritional status in the setting of malignancy with low albumin -Unlikely cardiac in origin despite elevated proBNP, with stable non ischemic EKG and negative troponin with no note arrhythmias with sinus tachycardia, TTE with normal EF, LVH and no WMA. 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 Ford who favored purpuric dermatits 2/2 anasarca and would benefit for elevation, wrapping, topical steroids and improving nutrition. NSCLC: -Spoke with Dr. Hendricks and updated him about ongoing workup. -has ongoing immunotyping, with upcoming plan for cisplatin/premetrexed. Has not yet begun treatment -continue pain control per oncology outpatient plan -In addition to mass, CXR also with a small L pleural effusion, currently stable on room air, will monitor DVT ppx: on xarelto 10 QD Diet: regular Dispo: med/surg to discharge home tomorrow VS,Miche, I+O VS, Fishbone, I+O Laboratory Tests 03/06/20 05:43 Vital Signs Date Time Temp Pulse Resp B/P (MAP) Pulse Ox O2 Delivery O2 Flow Rate FiO2 03/06/20 17:02 18 03/06/20 06:00 98.8 119 127/87 (100) 93 Room Air I&O- Last 24 Hours up to 6 AM 03/06/20 06:00 Intake Total 1950 ml Output Total 0 ml Balance 1950 ml BRENDA AGUIRRE MD Mar 06, 2020 17:48
[2020-03-06 19:55] VITALS: BP 131/89
[2020-03-07] MEDS: oxyCODONE 5MG TAB PO PRN (04:30)
[2020-03-07] MEDS: MORPHINE 30 MG SA TAB PO SCH (05:10)
[2020-03-07 06:23] VITALS: BP 130/87
--- NOTE | 2020-03-07 06:53 | DS.PDOC ---
Discharge Summary General Date of Admission Mar 03, 2020 at 18:10 Date of Discharge 03/07/2020 Primary Care Physician: A Attending Physician: BRENDA AGUIRRE MD Specialist/Consultants Involve: ISRAEL RAYA MD Specialist/Consultants Involve Ruthie (oncology) Discharge Summary PROCEDURES PERFORMED DURING STAY: None ADMITTING DIAGNOSES: 1. Anasarca DISCHARGE DIAGNOSES: 1. Protein malnutrition 2. Hypoalbuminemia with anasarca 3. Purpuric stasis dermatitis 4. NSCLC COMPLICATIONS/CHIEF COMPLAINT: Cellulitis,Leukocytosis. HISTORY OF PRESENT ILLNESS: 39 yo man smoker, with recently diagnosed VICTORINA NSCLC cancer pending starting chemo/XRT who presented to the ED per recommendation of his oncologist for worsening LE edema with bilateral erythematous, warm lower extremities from the ankles to subknee region with shallow open skin lesions from popped bullae, with associated pain, all evolved over 1 week. He otherwise denied fever, chills, N/V/chest pain/palpitations/syncope/abdominal more than his usual baseline pain. HOSPITAL COURSE: In the ED his WBC was 25.2, hgb 8.9, platelets 448, na 134, Cr 0.5, LFTs showed protein of 6.8 with albumin of 1.9 and proBNP of 2103. EKG was non ischemic with an incomplete RBBB and troponin was negative. He had bilateral venous doppler US that was negative for DVT and CXR with previously noted VICTORINA mass and small L pleural effusion. his initial presentation showed anasarca with hot erythematous bilateral lower extremities and given the open shallow bullae there was concern for port of entry for possible cellulitis and so he was placed on empiric ceftriaxone and borders mapped. Over the course of his stay, his leukocytosis, anemia and thrombocytosis did not improve and borders did not recede so antibiotics were stopped. His LE erythema also turned purpuric into non blanching confluent hemorrhagic purpuric dermatitis at which point I consulted dermatology. On dermatology's evaluation it was deemed purpuric dermatitis as a result of hypoalbuminemic driven anasarca precipitating LE stasis. They suggested better nutrition, elevated of LE, compression wrappings to the lower legs up to the knees, if weepy to use Domeboro packets as directed (usually 1-3 packets into 1 pint of cool water), apply for 15-20 minutes then apply steroid to area up to BID with triamcinolone 0.1 ointment as well as lymphatic massage. Of note, while inpatient, he went down to begin radiation treatment. He is now being discharged home with 0.1% triamcinolone ointment and compression wrappings with oncology and dermatology follow up. He is also encouraged to take ensure to supplement his nutrition. DISCHARGE MEDICATIONS: Please see below. ALLERGIES: Please see below. PHYSICAL EXAMINATION ON DISCHARGE: VITAL SIGNS: Please see below. General: Alert, No Acute Distress, cachectic Eye: PERRLA, EOMI anicteric, no injection ENT: Atraumatic, MMM Neck: supple, no adenopathy, JVD or thyromegaly Chest: Posterior left lower diminished, otherwise breathing comfortably on room air, no wheezing or rhonchi Heart: Tachycardic, Regular Rhythm, no murmurs Abdomen: Normal bowel sounds, soft, NTND Extremity: bilateral LE edema to thighs, WWP Skin : open bullae, dried up multiple open lesions, purpuric dermatitis ankle to sub-knee region bilaterally, anasarca has improved from admission Psych: Alert and Oriented x 3 LABORATORY DATA: Please see below. IMAGING: CXR: Large opacity in the left upper lobe has increased in size. There is now costophrenic angle and cardiophrenic angle blunting on the left. There is no change in the right lung. There is no change in the Mediport. There is no change in the osseous structures. LE venous doppler US: There is no abnormal echogenic material seen within any of the visualized deep venous structures that would suggest acute thrombosis. Coaptation is unremarkable throughout. Doppler interrogation shows an expected response to respiratory variability and augmentation. The color flow images show what appears to be a normal vascular pattern throughout. IMPRESSION: There is no ultrasonographic evidence of deep venous thrombosis involving any of the visualized deep venous structures of the bilateral thigh, as described above. TTE: 1. Small circumferential pericardial effusion measuring 7.8 mm over the lateral wall of the left ventricle and 4.6 mm over the posterior wall of the left ventricle. No diastolic chamber collapse. No significant respiratory variation of intracardiac velocities. 2. Bilateral pleural effusions. Irregular pleural thickening of the pleura on the left side. 3. Severe concentric left ventricle hypertrophy. Reduced left ventricle (LV) diastolic cavity size secondary to left ventricle hypertrophy (LVH). No regional wall motion abnormalities of the left ventricle. Hyperdynamic LV systolic function. Left ventricular ejection fraction (LVEF) 70% by visual estimate. Incomplete assessment of LV diastolic function on this study. LV diastolic function difficult to fully determine due to presence of sinus tachycardia. 4. Normal right ventricle size and systolic function. 5. Increased thickening of the interatrial septum and right atrial free wall. PROGNOSIS: Fair with aggressive nutrition and NSCLC treatment ACTIVITY: As tolerated DIET: Regular, with ensure DISCHARGE PLAN: Home with oncology follow up DISPOSITION: Home DISCHARGE INSTRUCTIONS: 1. Please make an effort to improve nutrition. I recommend addition of ensure with meals. ITEMS TO FOLLOWUP ON ON OUTPATIENT: 1. Nutritional status 2. NSCLC to begin treatment soon 3. Purpuric dermatitis DISCHARGE CONDITION: Stable TIME SPENT ON DISCHARGE: 45 minutes. Vital Signs/I&Os Vital Signs Date Time Temp Pulse Resp B/P (MAP) Pulse Ox O2 Delivery O2 Flow Rate FiO2 03/07/20 05:00 16 03/06/20 19:55 96.5 124 131/89 (103) 95 Room Air I&O- Last 24 Hours up to 6 AM0 03/07/20 06:00 Intake Total 1400 ml Output Total 0 ml Balance 1400 ml Microbiology Microbiology 03/03/20 Blood Culture - Preliminary, Resulted No Growth after 72 hours. All specime... 03/03/20 Blood Culture - Preliminary, Resulted No Growth after 72 hours. All specime... Discharge Medications Scheduled Budesonide/Formoterol (Symbicort 160-4.5 Mcg Inhaler) 6 Gm Hfa.aer.ad, 2 PUFF INH BID, (Reported) Doxycycline Monohydrate (Doxycycline Monohydrate) 100 Mg Capsule, 100 MG PO BID, (Reported) Folic Acid (Folic Acid) 1 Mg Tablet, 1 MG PO DAILY, (Reported) Morphine Sulfate (Morphine Sulfate ER) 30 Mg Tablet.er, 30 MG PO TID, (Reported) MDD 3 TABS Rivaroxaban (Xarelto) 10 Mg Tablet, 10 MG PO DAILY, (Reported) Scheduled PRN Albuterol Sulfate (Ventolin Hfa) 18 Gm Hfa.aer.ad, 2 PUFFS PO QID PRN for SHORTNESS OF BREATH, (Reported) Oxycodone HCl (Oxycodone HCl) 10 Mg Tablet, 10 MG PO Q4HP PRN for PAIN, (Reported) CANCER RELATED PAIN MDD 6 TABS Prochlorperazine (Prochlorperazine Maleate) 5 Mg Tablet, 5 MG PO TID PRN for NAUSEA, (Reported) FOR USE WHEN ON CHEMOTHERAPY Allergies Coded Allergies: Penicillins (Verified Allergy, Unknown, 01/10/20) BRENDA AGUIRRE MD March 07, 2020 06:53
[2020-03-07] MEDS ORDERED: DOME8.5P EX (07:04)
[2020-03-07] MEDS ORDERED: TRIA1OI TOP (07:04)
[2020-03-07 07:05] LABS: HEMATOCRIT 27.7 % (42.0-52.0); HEMOGLOBIN 8.7 g/dl (13.5-17.5); MEAN CORPUSCULAR HEMOGLOBIN 24.2 pg (27.0-33.0); MEAN CORPUSCULAR HGB CONC 31.4 g/dl (32.0-36.5); MEAN CORPUSCULAR VOLUME 77.2 fl (80.0-96.0); PLATELET COUNT, AUTOMATED 375 10^3/uL (150-450); RED BLOOD COUNT 3.59 10^6/uL (4.30-6.10); WHITE BLOOD COUNT 22.3 10^3/uL (4.0-10.0)
[2020-03-07 07:27] LABS: BLOOD UREA NITROGEN 23 MG/DL (7-18); CALCIUM LEVEL 8.8 MG/DL (8.5-10.1); CARBON DIOXIDE LEVEL 22 MEQ/L (21-32); CHLORIDE LEVEL 100 MEQ/L (98-107); CREATININE FOR GFR 0.54 MG/DL (0.70-1.30); GLOMERULAR FILTRATION RATE > 60.0 (>60); GLUCOSE, FASTING 84 MG/DL (70-100); POTASSIUM SERUM 4.2 MEQ/L (3.5-5.1); SODIUM LEVEL 133 MEQ/L (136-145)
[2020-03-07] MEDS: SYMBICORT 160/4.5MCG INHALER 6GM INH SCH (07:33)
[2020-03-07] MEDS: ACETAMINOPHEN TAB 650MG DOSE (2X325MG) PO PRN (09:00)
[2020-03-07] MEDS ORDERED: TRIAMCINOLONE ACET 0.1% OINTMENT 15 GM TOP SCH (09:00)
[2020-03-07] MEDS: FOLIC ACID 1 MG TAB PO SCH (09:01)
[2020-03-07] MEDS ORDERED: OXYC10TA12 PO (09:05)
[2020-03-07] MEDS ORDERED: MORP30TASA PO (14:41)
== END 2020-03-07 10:55 | disposition home or self-care (01) | DRG 694 ==
LOC: M ED 15:53 → M ED INP 18:10 → ENRESERV 18:51 → M MS5PR 20:17
PROVIDERS: ADMIT Internal Medicine; ATTEND Internal Medicine
DX: E88.09 Other disorders of plasma-protein metabolism, not elsewhere classified (principal); E43 Unspecified severe protein-calorie malnutrition; J90 Pleural effusion, not elsewhere classified; C77.9 Secondary and unspecified malignant neoplasm of lymph node, unspecified; C34.12 Malignant neoplasm of upper lobe, left bronchus or lung; D72.829 Elevated white blood cell count, unspecified; L30.8 Other specified dermatitis; I87.2 Venous insufficiency (chronic) (peripheral); F17.200 Nicotine dependence, unspecified, uncomplicated; Z88.0 Allergy status to penicillin; Z79.899 Other long term (current) drug therapy

== ENCOUNTER → 2020-03-06 | Outpatient (RCR) | payer OTHER ==
--- NOTE | 2020-02-26 16:25 | RADONC ---
RADIATION ONCOLOGY SIMULATION NOTE DATE: 02/26/2020 CHART NUMBER: [id number] SIMULATION NOTE: Mr. Dotson was taken to the CT scan for CT simulation of his left lung field. CT was accomplished without difficulty or discomfort. Radiation treatment planning is underway and radiation treatments will begin subsequently. An immobilization device was created and will be used throughout the course of treatment. It was created without difficulty or discomfort. I was physically present throughout the course of CT simulation.
[~2020-03-06] MED LIST changes: +DOME8.5P EX; +DOXY100C37 PO; +SYMB16INH INH; +TRIA1OI TOP; +VENTAER PO
== END ==
LOC: M ONCR 02-26 14:23
PROVIDERS: ATTEND Radiology Radiation Oncology
DX: C34.12 Malignant neoplasm of upper lobe, left bronchus or lung (principal)

== ENCOUNTER 2020-03-07 10:54 | Outpatient (RCR) | payer OTHER ==
[~2020-03-07 10:54] MED LIST changes: +VENTAER INH; -VENTAER PO
[2020-03-07] MEDS ORDERED: MORP30TASA PO (14:41)
[2020-03-12] MEDS ORDERED: TRIA1OI TOP (11:19)
[2020-03-12] MEDS ORDERED: DOME8.5P TOP (11:19)
--- NOTE | 2020-03-13 08:51 | RADONC ---
RADIATION ONCOLOGY PROGRESS NOTE DATE: 03/10/2020 CHART NUMBER: [id number] PROGRESS NOTE: Mr. Dotson underwent two fractions of radiation on and Tuesday last week for a dose of 400 cGy to his left lung while he was an inpatient. He was subsequently discharged from the hospital and was scheduled to come in today to resume radiation. We received a phone call stating that he was too weak and deteriorating and he did not plan on coming in today. He had been scheduled to initiate chemotherapy as well and contacted that office and told me would not be coming in either. The patient's overall condition is grave. It would not be unreasonable for him to stay home and undertake hospice. Clearly this is not curable in this patient. The goal of radiation was purely palliation in attempt to achieve some type of local control of this tumor eating through his chest wall. We will continue to follow him. If he does wish to resume radiation therapy, we are available to him. I will defer with regards to chemotherapy decision to his medical oncologist. My overall opinion however is this patient would be better served with hospice care. This has been discussed with him.
== END 2020-03-13 ==
LOC: M ONCR 10:54
PROVIDERS: ATTEND Radiology Radiation Oncology
DX: C34.12 Malignant neoplasm of upper lobe, left bronchus or lung (principal)

== ENCOUNTER 2020-03-12 09:26 | Observation (INO) | payer OTHER ==
[2020-03-12] VITALS (7 sets, daily range): BP systolic 97–101; BP diastolic 64–70
[~2020-03-12] VITALS: Ht 172.7 cm; Wt 58.9 kg
[2020-03-12 10:35] LABS: BASO % 0.1 % (0.0-1.0); HEMOGLOBIN 7.1 g/dl (13.5-17.5); LYMPH # 1.3 10^3/uL (1.5-5.0); LYMPH % 7.3 % (24.0-44.0); MEAN CORPUSCULAR HEMOGLOBIN 24.8 pg (27.0-33.0); MEAN CORPUSCULAR HGB CONC 30.9 g/dl (32.0-36.5); MEAN CORPUSCULAR VOLUME 80.4 fl (80.0-96.0); MONO % 5.3 % (0.0-5.0); NEUTROPHILS # 15.5 10^3/uL (1.5-8.5); NEUTROPHILS % 86.1 % (36.0-66.0); PLATELET COUNT, AUTOMATED 203 10^3/uL (150-450); RED BLOOD COUNT 2.86 10^6/uL (4.30-6.10)
[2020-03-12 11:18] LABS: BLOOD UREA NITROGEN 134 MG/DL (7-18); CALCIUM LEVEL 7.2 MG/DL (8.5-10.1); CARBON DIOXIDE LEVEL 22 MEQ/L (21-32); CHLORIDE LEVEL 94 MEQ/L (98-107); GLOMERULAR FILTRATION RATE > 60.0 (>60); GLUCOSE, FASTING 67 MG/DL (70-100); POTASSIUM SERUM 6.8 MEQ/L (3.5-5.1); SODIUM LEVEL 129 MEQ/L (136-145)
[2020-03-12] MEDS ORDERED: DOME8.5P TOP (11:19)
[2020-03-12] MEDS ORDERED: TRIA1OI TOP (11:19)
--- NOTE | 2020-03-12 11:21 | HPEPDOC ---
[facility] Medical History & Physical Date of Admission March 12, 2020 Date of Service: March 12, 2020 History and Physical CHIEF COMPLAINT: hospice, acute respiratory failure with hypoxia secondary to underlying lung cancer HISTORY OF PRESENT ILLNESS: Patient is a 39-year-old male with past medical history of VICTORINA lung cancer, dependent on 2 L of O2, tobacco use, who presents today with general fatigue and opted for hospice. In the ED, he was afebrile, saturating well on 2 L, hypotensive. Labs were obtained including sodium of 129, potassium of 6.8, chloride 94, B1 of 134, creatinine of 1.2, calcium of 7.2, WBC of 18, hemoglobin of 7.1. Discussed with patient and help her proxy, well transfuse patient in transitioned him to hospice care. Discussed with hospice team. ROS: 10 point review systems negative except per above. PMH: see above PSH: See above, NA Family history: Reviewed and noncontributory Social history: smoker, denies alcohol, or drug use. Medications: Reviewed Allergies: PCN PHYSICAL EXAMINATION: VITAL SIGNS: Please see below. GENERAL: Cachectic appearing male who appears fatigued and in slight respiratory distress HEENT: Normocephalic, atraumatic, moist mucous membranes NECK: Supple CARDIOVASCULAR EXAMINATION: S1, S2 RESPIRATORY EXAMINATION: Diminished ABDOMINAL EXAMINATION: Cachectic EXTREMITIES: no edema SKIN: No rash NEUROLOGICAL EXAMINATION: Awake PSYCHIATRIC EXAMINATION: Calm and cooperative, appropriate affect Assessment and plan Patient is a 39-year-old male with past medical history of VICTORINA lung cancer, dependent on 2 L of O2, tobacco use, who presents today with general fatigue and opted for hospice. #hospice for worsening clinical presentation secondary to VICTORINA lung cancer, dependent on O2. Hospice consult it, TOBACCO SHAKER protocol and meds, most form updated. #Anemia, likely secondary to underlying cancer, also consider bleed, none theless, due to hospice presentation, will treat palliatively with blood, consent was obtained. Hold off on repeat Hb to evaluate Hb improvement, will consider repeat if clinical Condition does not improve upon blood transfusion. Hold home NOAC. #urinary incontinence: waters placement #Leukocytosis/hyponatremia/hypochloremia/hyperkalemia, uremia, hypokalemia: will hold additional blood draws at this time patient is hospice. DVT ppx: none DNR/DNI/TOBACCO SHAKER Dispo: pending hospice placement 40 minutes were spent on care coordination and discussion with patient, family, nurseing team, and ED. Will proceed with conservative management and symptomatic treatment. Vital Signs Vital Signs Date Time Temp Pulse Resp B/P (MAP) Pulse Ox O2 Delivery O2 Flow Rate FiO2 03/12/20 10:44 Nasal Cannula 2.0 03/12/20 10:30 97/70 (79) 03/12/20 10:26 84 24 99 03/12/20 10:26 97.9 Laboratory Data Labs 24H Laboratory Tests 2 03/12/20 09:58: Immature Granulocyte % (Auto) 1.2, Neutrophils (%) (Auto) 86.1H, Lymphocytes (%) (Auto) 7.3L, Monocytes (%) (Auto) 5.3H, Eosinophils (%) (Auto) 0.0, Basophils (%) (Auto) 0.1, Neutrophils # (Auto) 15.5H, Lymphocytes # (Auto) 1.3L, Monocytes # (Auto) 1.0H, Eosinophils # (Auto) 0.0, Basophils # (Auto) 0.0, Nucleated Red Blood Cells % (auto) 0.2H, Anion Gap 13, Glomerular Filtration Rate > 60.0, Calcium Level 7.2L CBC/BMP Laboratory Tests 03/12/20 09:58 Home Medications Scheduled Budesonide/Formoterol (Symbicort 160-4.5 Mcg Inhaler) 6 Gm Hfa.aer.ad, 2 PUFF INH BID Folic Acid (Folic Acid) 1 Mg Tablet, 1 MG PO QHS Rivaroxaban (Xarelto) 10 Mg Tablet, 10 MG PO QHS Triamcinolone Acet (Triamcinolone Acetonide 0.1% Oint) 15 Gm Oint...g., 1 DOSE TOP BID APPLY TO LOWER LEGS Scheduled PRN Albuterol Sulfate (Ventolin Hfa) 18 Gm Hfa.aer.ad, 2 PUFFS INH QID PRN for SHORTNESS OF BREATH Calcium Acetate/Aluminum Sulf (Domeboro Powder Packet) 1 Each Powd.pack, 1 POW T OP BID PRN for WOUND CARE Morphine Sulfate (Morphine Sulfate ER) 30 Mg Tablet.er, 1 TAB PO TIDP PRN for pain iStop Reference # [id number] Oxycodone HCl (Oxycodone HCl) 10 Mg Tablet, 10 MG PO Q4HP PRN for PAIN CANCER RELATED PAIN MDD 6 TABS Prochlorperazine (Prochlorperazine Maleate) 5 Mg Tablet, 5 MG PO TID PRN for NAUSEA FOR USE WHEN ON CHEMOTHERAPY Allergies Coded Allergies: Penicillins (Verified Allergy, Unknown, 01/10/20) A-FIB/CHADSVASC A-FIB History Current/History of A-Fib/PAF?: No LINDA RUSSELL MD March 12, 2020 11:21
[2020-03-12] MEDS ORDERED: MAALOX 30 ML SUSP *UDC PO PRN (11:30)
[2020-03-12] MEDS ORDERED: MOM 30ML SUSPENSION UDC PO PRN (11:30)
[2020-03-12] MEDS ORDERED: NS 1,000 ML IV ONE (11:30)
[2020-03-12] MEDS ORDERED: ACETAMINOPHEN TAB 650MG DOSE (2X325MG) PO PRN (11:30)
[2020-03-12] MEDS ORDERED: PERCOCET 5MG/325MG TAB PO ONE (11:45)
[2020-03-12] MEDS ORDERED: ONDANSETRON 4 MG ORAL DISINTEGRATING TAB PO PRN (14:45)
[2020-03-12] MEDS ORDERED: LORazepam 1 MG TAB PO PRN (14:45)
[2020-03-12] MEDS ORDERED: NS 1,000 ML IV SCH (14:47)
[2020-03-12] MEDS: MORPHINE 10MG/0.5ML ORAL CONCENTRATE SOLUTION U/D SL PRN ×3 (15:30→22:04)
[2020-03-12] MEDS ORDERED: ALBUTEROL 90 MCG/ACT 8GM HFA INHALER INH PRN (18:00)
[2020-03-12] MEDS: SYMBICORT 160/4.5MCG INHALER 6GM INH SCH (19:31)
[2020-03-12] MEDS: TRIAMCINOLONE ACET 0.1% OINTMENT 15 GM TOP SCH (22:22)
[2020-03-12] MEDS ORDERED: oxyBUTYnin 5 MG TAB PO PRN (23:45)
[2020-03-13 00:39] VITALS: BP 101/70
[2020-03-13 01:54] VITALS: BP 102/71
[2020-03-13] MEDS: MORPHINE 10MG/0.5ML ORAL CONCENTRATE SOLUTION U/D SL PRN ×8 (01:59→21:30)
[2020-03-13 03:02] VITALS: BP 101/71
[2020-03-13] MEDS: SYMBICORT 160/4.5MCG INHALER 6GM INH SCH ×2 (07:18→20:25)
[2020-03-13] MEDS: TRIAMCINOLONE ACET 0.1% OINTMENT 15 GM TOP SCH ×2 (09:00→19:38)
[2020-03-13] MEDS: ATROPINE SULFATE 1% OP SOLN 2 ML BTL SL PRN ×3 (10:35→19:55)
--- NOTE | 2020-03-13 14:44 | IPNPDOC ---
Date Seen The patient was seen on 03/13/20. Progress Note SUBJECTIVE: No overnight events, patient reports feeling better after blood transfusion, breathing improved. To note, per hospital protocol for COVID screen, temperature will be checked. We'll change to inpatient status. OBJECTIVE PHYSICAL EXAMINATION: PHYSICAL EXAMINATION: VITAL SIGNS: Please see below. GENERAL: Cachectic appearing male who appears fatigued and in slight respiratory distress HEENT: Normocephalic, atraumatic, moist mucous membranes NECK: Supple CARDIOVASCULAR EXAMINATION: S1, S2 RESPIRATORY EXAMINATION: Diminished ABDOMINAL EXAMINATION: Cachectic EXTREMITIES: no edema SKIN: No rash NEUROLOGICAL EXAMINATION: Awake PSYCHIATRIC EXAMINATION: Calm and cooperative, appropriate affect Assessment and plan Patient is a 39-year-old male with past medical history of VICTORINA lung cancer, dependent on 2 L of O2, tobacco use, who presents today with general fatigue and opted for hospice. #hospice for worsening clinical presentation secondary to VICTORINA lung cancer, dependent on O2. Hospice consult it, ASSOCIATE DEAN protocol and meds, molst form updated. #Anemia, likely secondary to underlying cancer, also consider bleed, nonethe less, due to hospice presentation, will treat palliatively with blood, consent was obtained. Hold off on repeat Hb to evaluate Hb improvement, will consider repeat if clinical Condition does not improve upon blood transfusion. Hold home NOAC. #urinary incontinence: waters placement #Leukocytosis/hyponatremia/hypochloremia/hyperkalemia, uremia, hypokalemia: will hold additional blood draws at this time patient is hospice. DVT ppx: none DNR/DNI/ASSOCIATE DEAN Dispo: pending hospice placement, still DC on 03/14/2020 VS, I&O, 24H, Steviebonarturo Vital Signs/I&O Vital Signs Date Time Temp Pulse Resp B/P (MAP) Pulse Ox O2 Delivery O2 Flow Rate FiO2 03/13/20 13:48 18 03/13/20 07:30 2.0 03/13/20 03:02 97.5 82 101/71 88 Nasal Cannula I&O- Last 24 Hours up to 6 AM 03/13/20 05:59 Intake Total 2215 ml Output Total 1100 ml Balance 1115 ml LINDA RUSSELL MD March 13, 2020 14:44
--- NOTE | 2020-03-13 20:52 | ECGEPIP ---
[facility] Test Date: 2020-03-12 Pat Name: DANIELA HADDAD Department: Room: - Gender: Male Integrity Specialist: nestor : 1980 Requested By: KHAI CLEARY Order Number: [id number] Reading MD: Reddy Phillips Measurements Intervals Naylor Rate: 85 P: 76 WY: 176 QRS: 120 QRSD: 130 T: -8 QT: 423 QTc: 504 Interpretive Statements SINUS RHYTHM RIGHT AXIS DEVIATION RIGHT BUNDLE BRANCH BLOCK Nonspecific ST-T abnormalities Compared to the 2 tracings in the system, no significant changes Electronically Signed on 03-13-2020 20:51:58 EDT by Reddy Phillips
--- NOTE | 2020-03-14 12:02 | DS.PDOC ---
Discharge Summary General Date of Admission March 12, 2020 at 09:27 Date of Discharge 03/14/20 Discharge Summary PROCEDURES PERFORMED DURING STAY: None. ADMITTING DIAGNOSES: 1. Anemia, metastatic lung cancer, hospice. DISCHARGE DIAGNOSES: 1. Anemia, metastatic lung cancer, hospice. COMPLICATIONS/CHIEF COMPLAINT: Anemia. HISTORY OF PRESENT ILLNESS/HOSPITAL COURSE: Patient is a 39-year-old male with past medical history of VICTORINA lung cancer, dependent on 2 L of O2, tobacco use, who presents today with general fatigue and opted for hospice. In the ED, he was afebrile, saturating well on 2 L, hypotensive. Labs were obtained including sodium of 129, potassium of 6.8, chloride 94, B1 of 134, creatinine of 1.2, calcium of 7.2, WBC of 18, hemoglobin of 7.1. Discussed with patient and help h er proxy, transfused patient in transitioned him to hospice care. Discussed with hospice team. Pt the night of 03/13/2020, Dr. Ashraf pronounced pt. DISCHARGE MEDICATIONS: Please see below. ALLERGIES: Please see below. LABORATORY DATA: Please see below. DISPOSITION: 20 . Vital Signs/I&Os Vital Signs Date Time Temp Pulse Resp B/P (MAP) Pulse Ox O2 Delivery O2 Flow Rate FiO2 03/13/20 19:38 3.5 03/13/20 18:25 18 03/13/20 14:00 98.0 03/13/20 03:02 82 101/71 88 Nasal Cannula I&O- Last 24 Hours up to 6 AM 03/14/20 06:00 Intake Total 175 ml Output Total 300 ml Balance -125 ml Laboratory Data Labs 24H Laboratory Tests 2 03/14/20 09:38: Lab Scanned Report Transfusion Record Discharge Medications Scheduled Budesonide/Formoterol (Symbicort 160-4.5 Mcg Inhaler) 6 Gm Hfa.aer.ad, 2 PUFF INH BID, (Reported) Folic Acid (Folic Acid) 1 Mg Tablet, 1 MG PO QHS, (Reported) Rivaroxaban (Xarelto) 10 Mg Tablet, 10 MG PO QHS, (Reported) Triamcinolone Acet (Triamcinolone Acetonide 0.1% Oint) 15 Gm Oint...g., 1 DOSE TOP BID, (Reported) APPLY TO LOWER LEGS Scheduled PRN Albuterol Sulfate (Ventolin Hfa) 18 Gm Hfa.aer.ad, 2 PUFFS INH QID PRN for SHORTNESS OF BREATH, (Reported) Calcium Acetate/Aluminum Sulf (Domeboro Powder Packet) 1 Each Powd.pack, 1 POW TOP BID PRN for WOUND CARE, (Reported) Morphine Sulfate (Morphine Sulfate ER) 30 Mg Tablet.er, 1 TAB PO TIDP PRN for pain iStop Reference # [id number] Oxycodone HCl (Oxycodone HCl) 10 Mg Tablet, 10 MG PO Q4HP PRN for PAIN CANCER RELATED PAIN MDD 6 TABS Prochlorperazine (Prochlorperazine Maleate) 5 Mg Tablet, 5 MG PO TID PRN for NAUSEA, (Reported) FOR USE WHEN ON CHEMOTHERAPY Allergies Coded Allergies: Penicillins (Verified Allergy, Unknown, 01/10/20) LINDA RUSSELL MD March 14, 2020 12:02
== END 2020-03-13 21:55 | disposition expired ==
LOC: M ED 09:26 → EDBD 09:26 → M ED INP 09:27 → CMPBEDREQ 11:08 → ENRESERV 11:51 → M MS5PR 12:35
PROVIDERS: ADMIT Family Medicine; ATTEND Family Medicine
DX: D64.9 Anemia, unspecified (principal); C78.02 Secondary malignant neoplasm of left lung; I95.9 Hypotension, unspecified; Z99.81 Dependence on supplemental oxygen; R53.83 Other fatigue; R32 Unspecified urinary incontinence; D72.829 Elevated white blood cell count, unspecified; E87.1 Hypo-osmolality and hyponatremia; E87.8 Other disorders of electrolyte and fluid balance, not elsewhere classified; N19 Unspecified kidney failure; E87.6 Hypokalemia; F17.210 Nicotine dependence, cigarettes, uncomplicated; Z79.899 Other long term (current) drug therapy; Z79.01 Long term (current) use of anticoagulants; Z79.51 Long term (current) use of inhaled steroids; Z79.2 Long term (current) use of antibiotics; Z88.0 Allergy status to penicillin
CPT/HCPCS: 36415; 36430; 80048; 85025; 86850; 86900; 86901; 86920; 93005; 96360; 96361; 99285; P9016